=== PATIENT | female | born 1970 | race Caucasian/White ===

== ENCOUNTER 2017-07-07 11:20 | Inpatient (IN) | payer MEDICAID ==
[2017-07-07 11:32] VITALS: BMI 21.7
[2017-07-07 11:54] VITALS: O2SAT 98
[2017-07-07] MEDS ORDERED: Oxycodone/Acetaminophen 5/325 mg Tab PO STA (12:21)
[2017-07-07 12:28] LABS: PH,URINE >=9.0 (4.7-8.0); URINE BILIRUBIN NEGATIVE (NEGATIVE); URINE BLOOD MODERATE (NEGATIVE); URINE GLUCOSE (UA) NEGATIVE (NEGATIVE); URINE KETONE TRACE mg/dL (NEGATIVE); URINE LEUKOCYTE ESTERASE NEGATIVE Leu/uL (NEGATIVE); URINE PROTEIN 100 mg/dL (<30 mg/dL)
[2017-07-07 12:29] LABS: URINE APPEARANCE SL CLOUDY (CLEAR); URINE COLOR YELLOW (YELLOW)
--- NOTE | 2017-07-07 12:29 | ED PDOC ---
Arrival/HPI - General Chief Complaint: Psychiatric Evaluation Time Seen by Provider: 07/07/17 11:26 - History of Present Illness Narrative History of Present Illness (Text): 07/07/17 12:29 A 46 year old female, whose past medical history includes degenerative joint pain to the right hip, is sent to the emergency department from [facility] via [facility] for suicidal ideation. The patient claims she has chronic severe hip pain and the [facility] staff will only administer Tylenol and it doesn't help. The patient states she " I don't want to do this anymore, I want to kill myself, I want to ." Upon arrival patient denies any suicidal ideation and states she has three beautiful children. The patient is continuing to complain about her chronic hip pain. She denies any fever, chest pain, homicidal ideation , hallucinations, or any other complaints at this time. Time/Duration: Prior to Arrival Symptom Onset: Other (chronic ) Symptom Course: Unchanged Activities at Onset: Rest Context: Other ([facility] ) Past Medical History - Provider Review Nursing Documentation Reviewed: Yes - Infectious Disease Hx of Infectious Diseases: None - Hematological/Oncological Hx Hepatitis C: Yes - Musculoskeletal/Rheumatological Hx Osteoporosis: Yes Other/Comment: DJD of R hip - Psychiatric Hx Anxiety: Yes Hx Depression: Yes Hx Substance Use: No - Anesthesia Hx Anesthesia: No Family/Social History - Physician Review Nursing Documentation Reviewed: Yes Family/Social History: Unknown Family HX Smoking Status: Former Smoker Hx Alcohol Use: No Hx Substance Use: No Allergies/Home Meds Allergies/Adverse Reactions: Allergies No Known Allergies Allergy (Verified 07/07/17 11:32) Home Medications: Home Meds Medication Instructions Recorded Confirmed Acetaminophen/Codeine 1 tab PO Q6H PRN 07/07/17 07/07/17 [Tylenol/Codeine 300 MG/30 MG] Cyclobenzaprine [Flexeril] 1 tab PO Q8H PRN 07/07/17 07/07/17 Docusate [Colace] 1 cap PO DAILY 07/07/17 07/07/17 Enoxaparin [Lovenox] 30 mg SC DAILY 07/07/17 07/07/17 Escitalopram [Lexapro] 1 tab PO DAILY 07/07/17 07/07/17 Furosemide [Lasix] 1 tab PO DAILY 07/07/17 07/07/17 Gabapentin [Neurontin] 1 cap PO BID 07/07/17 07/07/17 Hydroxyzine HCl [Hydroxyzine HCl] 1 tab PO Q4H PRN 07/07/17 07/07/17 Ketorolac Tromethamine [Toradol] 15 mg PO Q6H PRN 07/07/17 07/07/17 Ondansetron ODT [Zofran ODT] 1 tab PO Q6H PRN 07/07/17 07/07/17 Pantoprazole Sodium [Protonix] 1 tab PO DAILY 07/07/17 07/07/17 Potassium Chloride [K-Dur 20 mEq 1 tab PO DAILY 07/07/17 07/07/17 ER Tab] Saccharomyces Boulardi [Florastor] 1 cap PO BID 07/07/17 07/07/17 Temazepam [Restoril] 1 cap PO HS PRN 07/07/17 07/07/17 cloNIDine [Catapres] 1 tab PO Q6H 07/07/17 07/07/17 traZODone [Desyrel] 1 tab PO HS 07/07/17 07/07/17 Review of Systems - Physician Review All systems were reviewed & negative as marked: Yes - Review of Systems Constitutional: absent: Fevers Cardiovascular: absent: Chest Pain Psychiatric: absent: Suicidal Ideation, Other (hallucination) Physical Exam - Physical Exam Narrative Physical Exam (Text): 07/07/17 12:30 Constitutional: No acute distress. Head: Normocephalic. Atraumatic. Eyes: PERRL. ENT: Moist mucous membranes. Neck: Supple. Cardiovascular: Regular rate. Chest: No tenderness. Respiratory: Clear to auscultation bilaterally. GI: Soft. Nontender. Nondistended. Back: No CVA tenderness. Musculoskeletal: No tenderness or swelling of extremities. Right hip tenderness. Skin: No rash. Neurologic: Alert, no focal deficit. Vital Signs Reviewed: Yes Vital Signs Pulse Resp BP Pulse Ox 07/07/17 17:45 104 H 193/105 H 07/07/17 13:20 98 H 19 159/92 H 98 07/07/17 11:47 104 H 17 143/90 98 Blood Pressure: Normal Pulse: Tachycardic Respiratory Rate: Normal Appearance: Positive for: Well-Appearing, Non-Toxic, Comfortable Pain Distress: None Mental Status: Positive for: Alert and Oriented X 3 Medical Decision Making ED Course and Treatment: 07/07/17 12:32 Impression: 46 year old female brought in via EMS for suicidal ideation. Differential Diagnosis included but are not limited to: Plan: -- EKG -- Chest X-ray -- Labs -- Zofran, Percocet -- Urinalysis -- Reassess and disposition Progress Notes: 07/07/17 14:13 Medically cleared. PES called. 07/07/17 15:07 Patient began vomiting. Abdomen nontender. Vomitus bilious. Will send for CT. CT negative for any acute disease. Patient was evaluated by PES, accepted by Dr. Mojica for major depression. - Lab Interpretations Lab Results: 07/07/17 13:25 07/07/17 13:25 Lab Results 07/07/17 13:25: Lipase 92 07/07/17 13:25: Alcohol, Quantitative < 10 07/07/17 13:25: Salicylates < 1 L, Acetaminophen < 10.0 L 07/07/17 13:25: Sodium 138, Potassium 4.3, Chloride 99, Carbon Dioxide 24, Anion Gap 19, BUN 19, Creatinine 0.7, Est GFR ( Amer) > 60, Est GFR (Non- Af Amer) > 60, Random Glucose 110, Calcium 10.1, Total Bilirubin 0.7, AST 25, ALT 19, Alkaline Phosphatase 136 H, Total Protein 8.8 H, Albumin 3.8, Globulin 5.0, Albumin/Globulin Ratio 0.8 L 07/07/17 13:25: WBC 12.5 H, RBC 4.43, Hgb 11.2 L, Hct 33.8 L, MCV 76.3 L, MCH 25.3, MCHC 33.1, RDW 15.3 H, Plt Count 415, MPV 8.3, Gran % 78.9 H, Lymph % ( Auto) 13.3 L, [place] % (Auto) 7.6 H, Eos % (Auto) 0.0 L, Baso % (Auto) 0.2, Gran # 9.90 H, Lymph # 1.7, [place] # 1.0 H, Eos # 0.0, Baso # 0.02 07/07/17 12:05: Urine HCG, Qual Negative 07/07/17 12:05: Urine Opiates Screen Positive H, Urine Methadone Screen Negative , Ur Barbiturates Screen Negative, Ur Phencyclidine Scrn Negative, Ur Amphetamines Screen Negative, U Benzodiazepines Scrn Positive H, U Oth Cocaine Metabols Negative, U Cannabinoids Screen Negative 07/07/17 12:05: Urine Color Yellow, Urine Appearance Sl cloudy, Urine pH >=9.0, Ur Specific Ransom 1.015, Urine Protein 100 H, Urine Glucose (UA) Negative, Urine Ketones Trace H, Urine Blood Moderate H, Urine Nitrate Negative, Urine Bilirubin Negative, Urine Urobilinogen 2.0 H, Ur Leukocyte Esterase Negative, Urine RBC 10 - 15, Urine WBC 0 - 2, Ur Epithelial Cells 0 - 2, Urine Bacteria Many - RAD Interpretation Radiology Orders: 07/07/17 12:13 CHEST PORTABLE [RAD] Stat 07/07/17 15:04 ABD & PELVIS W/O PO OR IV CONT [CT] Stat - Medication Orders Current Medication Orders: Discontinued Medications Alprazolam (Xanax) 0.5 mg PO STAT STA PRN Reason: Protocol Stop: 07/07/17 13:33 Last Admin: 07/07/17 13:38 Dose: 0.5 mg Clonidine HCl (Catapres) 0.1 mg PO STAT STA Stop: 07/07/17 17:32 Last Admin: 07/07/17 17:45 Dose: 0.1 mg Ondansetron HCl (Zofran Odt) 4 mg PO STAT STA Stop: 07/07/17 12:24 Last Admin: 07/07/17 12:38 Dose: 4 mg Ondansetron HCl (Zofran Odt) 4 mg PO STAT STA Stop: 07/07/17 17:08 Last Admin: 07/07/17 17:20 Dose: 4 mg Oxycodone/Acetaminophen (Percocet 5/325 Mg Tab) 1 tab PO STAT STA Stop: 07/07/17 12:22 Last Admin: 07/07/17 12:38 Dose: 1 tab - Scribe Statement The provider has reviewed the documentation as recorded by the Jesus Macedo Provider Scribe Attestation: All medical record entries made by the Scribe were at my direction and personally dictated by me. I have reviewed the chart and agree that the record accurately reflects my personal performance of the history, physical exam, medical decision making, and the department course for this patient. I have also personally directed, reviewed, and agree with the discharge instructions and disposition. Disposition/Present on Arrival - Present on Arrival Any Indicators Present on Arrival: No History of DVT/PE: No History of Uncontrolled Diabetes: No Urinary Catheter: No History of Decub. Ulcer: No History Surgical Site Infection Following: None - Disposition Have Diagnosis and Disposition been Completed?: Yes Diagnosis: Major depression Disposition: HOSPITALIZED Disposition Time: 14:13 Patient Plan: Admission Condition: FAIR
[2017-07-07 12:50] LABS: URINE EPITHELIAL CELLS 0 - 2 /hpf (0-5); URINE WBC 0 - 2 /hpf (0-6)
[2017-07-07 12:51] LABS: URINE BACTERIA MANY (NEG)
--- NOTE | 2017-07-07 13:14 | RAD ---
HISTORY: SI COMPARISON: No prior. FINDINGS: LUNGS: No active pulmonary disease. PLEURA: No significant pleural effusion identified, no pneumothorax apparent. CARDIOVASCULAR: Normal. OSSEOUS STRUCTURES: No significant abnormalities. VISUALIZED UPPER ABDOMEN: Normal. OTHER FINDINGS: None. IMPRESSION: No active disease.
[2017-07-07 13:38] LABS: BASO # 0.02 K/mm3 (0.0-2.0); BASO % 0.2 % (0.0-3.0); GRAN # 9.9 (1.4-6.5); GRAN % 78.9 % (50.0-68.0); HEMATOCRIT 33.8 % (36.0-48.0); LYMPH # 1.7 (1.2-3.4); LYMPH % 13.3 % (22.0-35.0); MEAN CELL VOLUME 76.3 fl (80.0-105.0); MEAN CORPUSCULAR HEMOGLOBIN 25.3 pg (25.0-35.0); MEAN CORPUSCULAR HGB CONC 33.1 g/dl (31.0-37.0); MEAN PLATELET VOLUME 8.3 fl (7.0-11.0); MONO % 7.6 % (1.0-6.0); RED CELL DISTRIBUTION WIDTH 15.3 % (11.5-14.5); WHITE BLOOD COUNT 12.5 10^3/ul (4.5-11.0)
[2017-07-07 13:50] LABS: ALB/GLOB RATIO 0.8 (1.1-1.8); ALKALINE PHOSPHATASE 136 U/L (38-126); ALT/SGPT 19 U/L (7-56); AST/SGOT 25 U/L (14-36); BILIRUBIN,TOTAL 0.7 mg/dL (0.2-1.3); BLOOD UREA NITROGEN 19 mg/dL (7-21); CALCIUM 10.1 mg/dL (8.4-10.5); CARBON DIOXIDE 24 mmol/L (21-33); CHLORIDE 99 mmol/L (98-107); GFR AFRICAN-AMERICAN > 60; GLUCOSE,RANDOM 110 mg/dL (70-110); POTASSIUM 4.3 mmol/L (3.6-5.0); SODIUM 138 mmol/L (132-148); TOTAL PROTEIN 8.8 g/dL (5.8-8.3)
--- NOTE | 2017-07-07 16:56 | CT ---
PROCEDURE: CT Abdomen and Pelvis without intravenous contrast HISTORY: vomiting COMPARISON: None. TECHNIQUE: Without contrast.. Contrast Dose: Radiation dose: Total exam DLP = 471 mGy-cm. This CT exam was performed using one or more of the following dose reduction techniques: Automated exposure control, adjustment of the mA and/or kV according to patient size, and/or use of iterative reconstruction technique. FINDINGS: LOWER THORAX: Unremarkable. LIVER: Unremarkable. No gross lesion or ductal dilatation. GALLBLADDER AND BILE DUCTS: There is calcification of the wall of the gallbladder PANCREAS: Unremarkable. No gross lesion or ductal dilatation. SPLEEN: Unremarkable. ADRENALS: Unremarkable. No mass. KIDNEYS AND URETERS: There is a 6 mm stone in the superior pole of the right kidney. VASCULATURE: Unremarkable. No aortic aneurysm. BOWEL: Unremarkable. No obstruction. No gross mural thickening. APPENDIX: Unremarkable. Normal appendix. PERITONEUM: Unremarkable. No free fluid. No free air. LYMPH NODES: Unremarkable. No enlarged lymph nodes. BLADDER: Unremarkable. REPRODUCTIVE: Unremarkable. BONES: Severe degenerative changes in the right hip with multiple bony fragments and destruction of the articular surface. OTHER FINDINGS: None. IMPRESSION: No acute intra-abdominal findings
[2017-07-07 17:38] VITALS: RESP 19
[2017-07-07] MEDS ORDERED: Alum-Mag Hydrox-Simethicone Susp (30 mL) PO PRN (21:34)
[2017-07-07] MEDS ORDERED: Magnesium Hydroxide Susp 30 ml UD PO PRN (21:34)
--- NOTE | 2017-07-08 01:33 | PCM.BM ---
Treatment Plan Problems - Problems identified on initial assessmt depression Date Initiated: 07/07/17 Time Initiated: 20:00 Assessment reference: NA Status: Active Priority: 1 anxiety Date Initiated: 07/07/17 Time Initiated: 20:00 Assessment reference: NA Status: Active Priority: 2 Treatment assets and liabiliti Patient Assests: negotiates basic needs, cognitively intact Patient Liabilities: physical pain, financial problems, poor support system, substance abuse, medical problems - Milieu Protocol Maintain good personal hygiene: daily Assist patient to perform ADL's Conduct patient checks and document Observation sheet: Q15 minutes Maintain personal safety: daily Monitor environment for contraband/sharps, every shift Educate patient to report safety concerns to staff Medication safety: Monitor for expected outcome, potential side effects: every shift, Assess barriers to learning: every shift, Assess readiness for medication education: every shift Discharge/Continuing Care - Education Needs Education Needs: Patient Medication, Patient Coping Skills, Patient Activities of Daily Living, Patient Pain - Discharge Discharge Criteria: Free of agitation, Normal sleep pattern
[2017-07-08 01:50] VITALS: BP 175/104; PULSE 88
--- NOTE | 2017-07-08 02:01 | CP.PCM.PN ---
Subjective - Date & Time of Evaluation Date of Evaluation: 07/08/17 Time of Evaluation: 01:57 - Subjective Subjective: Patient was seen for elevated blood pressure reading. Requested xanax. 181/111-->174/99 hr-104/min. Clonidine 0.1 mg was given po x2. 182/109---> hydralazine 50 mg pox1. BP 181/109 mmHG. Patient has been vomiting.Last time vomiting showed blood. This 46 year old white woman was admitted with suicidal ideation . Has PMH of DJD of right hip, osteoporosis, hepatitis, heroine abuse, smoker. Objective - Vital Signs/Intake and Output Vital Signs (last 24 hours): Temp Pulse Resp BP Pulse Ox 88 19 175/104 H 98 07/08/17 01:46 07/07/17 13:20 07/08/17 01:46 07/07/17 13:20 - Medications Medications: Current Medications Al Hydrox/Mg Hydrox/Simethicone (Maalox Plus 30 Ml) 30 ml PO DAILY PRN PRN Reason: Upset Stomach Clonidine HCl (Catapres) 0.1 mg PO DAILY NARENDRA Cyclobenzaprine HCl (Flexeril) 10 mg PO Q8 PRN PRN Reason: Muscle spasm Docusate Sodium (Colace) 100 mg PO DAILY NARENDRA Enoxaparin Sodium (Lovenox) 30 mg SC DAILY NARENDRA PRN Reason: Protocol Escitalopram Oxalate (Lexapro) 10 mg PO DAILY NARENDRA Furosemide (Lasix) 20 mg PO DAILY NARENDRA Gabapentin (Neurontin) 300 mg PO TID NARENDRA PRN Reason: Protocol Ibuprofen (Motrin Tab) 600 mg PO QID PRN PRN Reason: Pain, moderate (4-7) Last Admin: 07/07/17 21:11 Dose: 600 mg Ketorolac Tromethamine (Toradol) 15 mg IM Q6 PRN PRN Reason: Pain, severe (8-10) Stop: 07/12/17 20:49 Lorazepam (Ativan) 0.5 mg PO BID PRN; Protocol PRN Reason: Anxiety Last Admin: 07/07/17 21:12 Dose: 0.5 mg Magnesium Hydroxide (Milk Of Magnesia) 30 ml PO DAILY PRN PRN Reason: Constipation Ondansetron HCl (Zofran Odt) 4 mg PO Q6 PRN PRN Reason: Nausea/Vomiting Last Admin: 07/07/17 23:59 Dose: 4 mg Pantoprazole Sodium (Protonix Ec Tab) 40 mg PO 0600 NARENDRA Potassium Chloride (K-Dur 20 Meq Er Tab) 20 meq PO 0800 NARENDRA Zaleplon (Sonata) 5 mg PO HS PRN PRN Reason: Insomnia Last Admin: 07/07/17 21:11 Dose: 5 mg - Constitutional Appears: Other (In mild distress.) - Head Exam Head Exam: ATRAUMATIC, NORMAL INSPECTION, NORMOCEPHALIC - Eye Exam Eye Exam: Normal appearance - ENT Exam ENT Exam: Mucous Membranes Dry, Normal External Ear Exam - Neck Exam Neck Exam: Normal Inspection - Respiratory Exam Respiratory Exam: NORMAL BREATHING PATTERN - Cardiovascular Exam Cardiovascular Exam: +S1 (Normal.), +S2 (Normal.). absent: JVD - GI/Abdominal Exam GI & Abdominal Exam: absent: Distended - Rectal Exam Rectal Exam: Deferred - Exam Additional comments: Deferred. - Back Exam Back Exam: NORMAL INSPECTION - Neurological Exam Neurological Exam: Alert, Oriented x3 - Psychiatric Exam Psychiatric exam: Normal Affect, Normal Mood - Skin Skin Exam: Dry Assessment and Plan - Assessment and Plan (Free Text) Assessment: Uncontrolled hypertension. Hemetemesis. Suicidal ideation. Heroine withdrawal. Hx hepatitis C. Hx osteoporosis. Hx right hip DJD. Plan: Clonidine 0.1 mg PO x 2. Hydralazine 50 mg PO x 1. Will transfer to ER for evaluation for admission to acute care side.
[2017-07-08] MEDS ORDERED: Pantoprazole 40 mg EC Tab PO ONE (02:53)
[2017-07-08] MEDS ORDERED: Pantoprazole 40 mg EC Tab PO SCH (06:00)
--- NOTE | 2017-07-08 07:56 | PCM.PSYCH ---
Initial Psychiatric Evaluation - Initial Psychiatric Evaluation Type of Admission: Voluntary Legal Status: Capacity (pt has capacity to sign consent for tx) Chief Complaint (in patient's own words): "I am in pain" Patient's Reaction to Hospitalization: pt was admitted to the psych unit from the [facility] for evaluation of depressive symptoms and possible SI ideation History of Present Illness and Precipitating Events: shortly pt is 46yo female, not known h/o mental illness, was referred from the [facility] for eval of depressive symptoms and possible suicidal ideation, pt was admitted over night. this literary writer was not able to assess pt because pt was transferred to ED for evaluation of blood vomiting, uncontrolled elevation BP. vitals reviewed, discussed with RNs. Hospitalist note reviewed. medical h/o: DJD of right hip, osteoporosis, hepatitis, heroine abuse, smoker 07/07/17 13:25 07/07/17 13:25 Lab Results 07/07/17 13:25: Lipase 92 07/07/17 13:25: Alcohol, Quantitative < 10 07/07/17 13:25: Salicylates < 1 L, Acetaminophen < 10.0 L 07/07/17 13:25: Sodium 138, Potassium 4.3, Chloride 99, Carbon Dioxide 24, Anion Gap 19, BUN 19, Creatinine 0.7, Est GFR ( Amer) > 60, Est GFR (Non- Af Amer) > 60, Random Glucose 110, Calcium 10.1, Total Bilirubin 0.7, AST 25, ALT 19, Alkaline Phosphatase 136 H, Total Protein 8.8 H, Albumin 3.8, Globulin 5.0, Albumin/Globulin Ratio 0.8 L 07/07/17 13:25: WBC 12.5 H, RBC 4.43, Hgb 11.2 L, Hct 33.8 L, MCV 76.3 L, MCH 25.3, MCHC 33.1, RDW 15.3 H, Plt Count 415, MPV 8.3, Gran % 78.9 H, Lymph % ( Auto) 13.3 L, [place] % (Auto) 7.6 H, Eos % (Auto) 0.0 L, Baso % (Auto) 0.2, Gran # 9.90 H, Lymph # 1.7, [place] # 1.0 H, Eos # 0.0, Baso # 0.02 07/07/17 12:05: Urine HCG, Qual Negative 07/07/17 12:05: Urine Opiates Screen Positive H, Urine Methadone Screen Negative , Ur Barbiturates Screen Negative, Ur Phencyclidine Scrn Negative, Ur Amphetamines Screen Negative, U Benzodiazepines Scrn Positive H, U Oth Cocaine Metabols Negative, U Cannabinoids Screen Negative 07/07/17 12:05: Urine Color Yellow, Urine Appearance Sl cloudy, Urine pH >=9.0, Ur Specific [place] 1.015, Urine Protein 100 H, Urine Glucose (UA) Negative, Urine Ketones Trace H, Urine Blood Moderate H, Urine Nitrate Negative, Urine Bilirubin Negative, Urine Urobilinogen 2.0 H, Ur Leukocyte Esterase Negative, Urine RBC 10 - 15, Urine WBC 0 - 2, Ur Epithelial Cells 0 - 2, Urine Bacteria Many Vital Signs Pulse Resp BP Pulse Ox 07/08/17 01:46 88 175/104 H 07/07/17 23:18 89 174/99 H 07/07/17 17:45 104 H 193/105 H 07/07/17 13:20 98 H 19 159/92 H 98 07/07/17 11:47 104 H 17 143/90 98 Current Medications: Active Medications Generic Name Dose Route Start Last Admin Trade Name Freq PRN Reason Stop Dose Admin Al Hydrox/Mg Hydrox/Simethicone 30 ml 07/07/17 21:34 Maalox Plus 30 Ml PO DAILY PRN Upset Stomach Clonidine HCl 0.1 mg 07/08/17 08:00 Catapres PO DAILY [facility] Cyclobenzaprine HCl 10 mg 07/07/17 21:24 Flexeril PO Q8 PRN Muscle spasm Docusate Sodium 100 mg 07/08/17 08:00 Colace PO DAILY [facility] Enoxaparin Sodium 30 mg 07/08/17 08:00 Lovenox SC DAILY [facility] Protocol Escitalopram Oxalate 10 mg 07/08/17 08:00 Lexapro PO DAILY [facility] Furosemide 20 mg 07/08/17 08:00 Lasix PO DAILY [facility] Gabapentin 300 mg 07/08/17 08:00 Neurontin PO TID [facility] Protocol Ibuprofen 600 mg 07/07/17 20:50 07/07/17 21:11 Motrin Tab PO 600 mg QID PRN Administration Pain, moderate (4-7) Ketorolac Tromethamine 15 mg 07/07/17 20:48 Toradol IM 07/12/17 20:49 Q6 PRN Pain, severe (8-10) Lorazepam 0.5 mg 07/07/17 20:48 07/07/17 21:12 Ativan PO 0.5 mg BID PRN Administration Anxiety Protocol Magnesium Hydroxide 30 ml 07/07/17 21:34 Milk Of Magnesia PO DAILY PRN Constipation Ondansetron HCl 4 mg 07/07/17 21:24 07/07/17 23:59 Zofran Odt PO 4 mg Q6 PRN Administration Nausea/Vomiting Pantoprazole Sodium 40 mg 07/08/17 06:00 Protonix Ec Tab PO 0600 NARENDRA Potassium Chloride 20 meq 07/08/17 08:00 K-Dur 20 Meq Er Tab PO 0800 NARENDRA Zaleplon 5 mg 07/07/17 20:48 07/07/17 21:11 Sonata PO 5 mg HS PRN Administration Insomnia Past Psychiatric History - Past Psychiatric History Previous Treatment History: None Prior Professional Help: see HPI Prior Psychiatric Treatment: see HPI At what hospital: see HPI Duration: see HPI Nature of Treatment: see HPI Explanation of prior treatment: see HPI History of Abuse: see HPI unknown History of ETOH/Drug Use: see HPI unknown History of Family Illness: see HPI unknown Pertinent Medical Hx (Current Medical&Sleep Prob, Allergies): Allergies Allergy/AdvReac Type Severity Reaction Status Date / Time No Known Allergies Allergy Verified 07/07/17 22:33 Acetaminophen/Codeine [Tylenol/Codeine 300 MG/30 MG] 1 tab PO Q6H PRN 07/07/17 Cyclobenzaprine [Flexeril] 1 tab PO Q8H PRN 07/07/17 Docusate [Colace] 1 cap PO DAILY 07/07/17 Enoxaparin [Lovenox] 30 mg SC DAILY 07/07/17 Escitalopram [Lexapro] 1 tab PO DAILY 07/07/17 Furosemide [Lasix] 1 tab PO DAILY 07/07/17 Gabapentin [Neurontin] 1 cap PO BID 07/07/17 Hydroxyzine HCl [Hydroxyzine HCl] 1 tab PO Q4H PRN 07/07/17 Ketorolac Tromethamine [Toradol] 15 mg PO Q6H PRN 07/07/17 Ondansetron ODT [Zofran ODT] 1 tab PO Q6H PRN 07/07/17 Pantoprazole Sodium [Protonix] 1 tab PO DAILY 07/07/17 Potassium Chloride [K-Dur 20 mEq ER Tab] 1 tab PO DAILY 07/07/17 Saccharomyces Boulardi [Florastor] 1 cap PO BID 07/07/17 Temazepam [Restoril] 1 cap PO HS PRN 07/07/17 cloNIDine [Catapres] 1 tab PO Q6H 07/07/17 traZODone [Desyrel] 1 tab PO HS 07/07/17 Review of Systems - Review of Systems Systems not reviewed;Unavailable: Acuity of Condition - EENT Eyes: As Per HPI Ears: As Per HPI Nose/Mouth/Throat: As Per HPI - Breasts Breasts: As Per HPI - Cardiovascular Cardiovascular: As Per HPI - Respiratory Respiratory: As Per HPI - Gastrointestinal Gastrointestinal: As Per HPI - Genitourinary Genitourinary: As Per HPI - Reproductive: Female Reproductive:Female: As Per HPI - Menstruation Menstruation: As Per HPI - Musculoskeletal Musculoskeletal: As Par HPI - Integumentary Integumentary: As Per HPI - Neurological Neurological: As Per HPI - Psychiatric Psychiatric: As Per HPI - Endocrine Endocrine: As Per HPI - Hematologic/Lymphatic Hematologic: As Per HPI DSM 5 DX - DSM 5 DSM 5 Diagnosis: r/o MDD r/o mood disorder due to [place] [facility] [place] Recommended/Plan of Treatment Treatment Recommendations and Plan of Treatment: pt was transferred to ED this literary writer will f/u on pt as a outreach consultant Prognosis: guarded
--- NOTE | 2017-07-08 07:57 | PCM.PYCHDC ---
Mental Status Examination - Mental Status Examination Orientation: Person Memory: Intact Mood: Depressed Formal Thought Process: No Impairment Suicidal Ideation: No Current Homicidal Ideation?: No Discharge Summary - Discharge Note Reason for Hospitalization: pt was admitted to the psych unit from the [facility] for evaluation of depressive symptoms and possible SI ideation Psychiatric History (includes Medical, Family, Personal Hx): see HPI Laboratory Data: 07/07/17 13:25 07/07/17 13:25 Lab Results 07/07/17 13:25: Lipase 92 07/07/17 13:25: Alcohol, Quantitative < 10 07/07/17 13:25: Salicylates < 1 L, Acetaminophen < 10.0 L 07/07/17 13:25: Sodium 138, Potassium 4.3, Chloride 99, Carbon Dioxide 24, Anion Gap 19, BUN 19, Creatinine 0.7, Est GFR ( Amer) > 60, Est GFR (Non- Af Amer) > 60, Random Glucose 110, Calcium 10.1, Total Bilirubin 0.7, AST 25, ALT 19, Alkaline Phosphatase 136 H, Total Protein 8.8 H, Albumin 3.8, Globulin 5.0, Albumin/Globulin Ratio 0.8 L 07/07/17 13:25: WBC 12.5 H, RBC 4.43, Hgb 11.2 L, Hct 33.8 L, MCV 76.3 L, MCH 25.3, MCHC 33.1, RDW 15.3 H, Plt Count 415, MPV 8.3, Gran % 78.9 H, Lymph % ( Auto) 13.3 L, [place] % (Auto) 7.6 H, Eos % (Auto) 0.0 L, Baso % (Auto) 0.2, Gran # 9.90 H, Lymph # 1.7, [place] # 1.0 H, Eos # 0.0, Baso # 0.02 07/07/17 12:05: Urine HCG, Qual Negative 07/07/17 12:05: Urine Opiates Screen Positive H, Urine Methadone Screen Negative , Ur Barbiturates Screen Negative, Ur Phencyclidine Scrn Negative, Ur Amphetamines Screen Negative, U Benzodiazepines Scrn Positive H, U Oth Cocaine Metabols Negative, U Cannabinoids Screen Negative 07/07/17 12:05: Urine Color Yellow, Urine Appearance Sl cloudy, Urine pH >=9.0, Ur Specific [place] 1.015, Urine Protein 100 H, Urine Glucose (UA) Negative, Urine Ketones Trace H, Urine Blood Moderate H, Urine Nitrate Negative, Urine Bilirubin Negative, Urine Urobilinogen 2.0 H, Ur Leukocyte Esterase Negative, Urine RBC 10 - 15, Urine WBC 0 - 2, Ur Epithelial Cells 0 - 2, Urine Bacteria Many Vital Signs Pulse Resp BP Pulse Ox 07/08/17 01:46 88 175/104 H 07/07/17 23:18 89 174/99 H 07/07/17 17:45 104 H 193/105 H 07/07/17 13:20 98 H 19 159/92 H 98 07/07/17 11:47 104 H 17 143/90 98 Consultations:: List each consultation separately and include: 1. Reason for request. 2. Findings. 3. Follow-up Consultations: hospitalist saw pt pt was transferred to ED for further evaluation/stabilization Summary of Hospital Course include:: 1. Description of specific treatment plan utilized for patients during their course of treatmen. 2. Summarize the time- course for resolution of acute symptoms and/or regressed behaviors. 3. Describe issues identified and worked on during hospitalization. 4. Describe medication utilized. 5. Describe medical problems identified and treated. 6. Reassessment of suicide risk Summary of Hospital Course: shortly pt is 46yo female, not known h/o mental illness, was referred from the [facility] for eval of depressive symptoms and possible suicidal ideation, pt was admitted over night. this commercial lines underwriter was not able to assess pt because pt was transferred to ED for evaluation of blood vomiting, uncontrolled elevation BP. vitals reviewed, discussed with RNs. Hospitalist note reviewed. medical h/o: DJD of right hip, osteoporosis, hepatitis, heroine abuse, smoker 07/07/17 13:25 07/07/17 13:25 Lab Results 07/07/17 13:25: Lipase 92 07/07/17 13:25: Alcohol, Quantitative < 10 07/07/17 13:25: Salicylates < 1 L, Acetaminophen < 10.0 L 07/07/17 13:25: Sodium 138, Potassium 4.3, Chloride 99, Carbon Dioxide 24, Anion Gap 19, BUN 19, Creatinine 0.7, Est GFR ( Amer) > 60, Est GFR (Non- Af Amer) > 60, Random Glucose 110, Calcium 10.1, Total Bilirubin 0.7, AST 25, ALT 19, Alkaline Phosphatase 136 H, Total Protein 8.8 H, Albumin 3.8, Globulin 5.0, Albumin/Globulin Ratio 0.8 L 07/07/17 13:25: WBC 12.5 H, RBC 4.43, Hgb 11.2 L, Hct 33.8 L, MCV 76.3 L, MCH 25.3, MCHC 33.1, RDW 15.3 H, Plt Count 415, MPV 8.3, Gran % 78.9 H, Lymph % ( Auto) 13.3 L, [place] % (Auto) 7.6 H, Eos % (Auto) 0.0 L, Baso % (Auto) 0.2, Gran # 9.90 H, Lymph # 1.7, [place] # 1.0 H, Eos # 0.0, Baso # 0.02 07/07/17 12:05: Urine HCG, Qual Negative 07/07/17 12:05: Urine Opiates Screen Positive H, Urine Methadone Screen Negative , Ur Barbiturates Screen Negative, Ur Phencyclidine Scrn Negative, Ur Amphetamines Screen Negative, U Benzodiazepines Scrn Positive H, U Oth Cocaine Metabols Negative, U Cannabinoids Screen Negative 07/07/17 12:05: Urine Color Yellow, Urine Appearance Sl cloudy, Urine pH >=9.0, Ur Specific [place] 1.015, Urine Protein 100 H, Urine Glucose (UA) Negative, Urine Ketones Trace H, Urine Blood Moderate H, Urine Nitrate Negative, Urine Bilirubin Negative, Urine Urobilinogen 2.0 H, Ur Leukocyte Esterase Negative, Urine RBC 10 - 15, Urine WBC 0 - 2, Ur Epithelial Cells 0 - 2, Urine Bacteria Many Vital Signs Pulse Resp BP Pulse Ox 07/08/17 01:46 88 175/104 H 07/07/17 23:18 89 174/99 H 07/07/17 17:45 104 H 193/105 H 07/07/17 13:20 98 H 19 159/92 H 98 07/07/17 11:47 104 H 17 143/90 98 - Final Diagnosis (DSM 5) Condition upon Discharge: FAIR Disposition: HOME/ ROUTINE Follow-up Treatment Plan: pt was transferred to ED this commercial lines underwriter will f/u on pt as a wound care center consultant
[2017-07-08] MEDS ORDERED: Enoxaparin 30 mg Syringe SC SCH (08:00)
[2017-07-08] MEDS ORDERED: Potassium Chloride 20 mEq ER Tab PO SCH (08:00)
--- NOTE | 2017-07-08 08:57 | CARD ---
APPROVED REPORT EKG Measurement Heart [id number] <Conclusion> Sinus tachycardia Otherwise normal ECG
== END 2017-07-08 05:58 | disposition short-term general hospital (02) | DRG 426 ==
LOC: ED 11:20 → ERH 17:06 → PSYC 19:51
PROVIDERS: ADMIT Psychiatry & Neurology Psychiatry; ATTEND Psychiatry & Neurology Psychiatry
DX: F32.9 Major depressive disorder, single episode, unspecified (principal); R45.851 Suicidal ideations; K92.0 Hematemesis; B19.20 Unspecified viral hepatitis C without hepatic coma; F11.10 Opioid abuse, uncomplicated; I10 Essential (primary) hypertension; M81.0 Age-related osteoporosis without current pathological fracture; M16.11 Unilateral primary osteoarthritis, right hip; G89.29 Other chronic pain; F41.9 Anxiety disorder, unspecified; Z87.891 Personal history of nicotine dependence

== ENCOUNTER 2017-07-08 04:56 | Inpatient (IN) | payer MEDICAID ==
[2017-07-08 04:56] VITALS: BMI 21.7
[2017-07-08] MEDS ORDERED: Famotidine 20mg/50ml 20 MG/50 ML BAG IV STA (05:03)
--- NOTE | 2017-07-08 05:04 | ED PDOC ---
Arrival/HPI - General Chief Complaint: High Blood Pressure Time Seen by Provider: 07/08/17 05:00 Historian: Patient - History of Present Illness Narrative History of Present Illness (Text): 07/08/17 05:00 A 46 year old female with no significant past medical history, presents to the Emergency department from [facility] for uncontrolled hypertension and multiple episodes of nausea and vomiting. The patient was given Hydralazine and Clonidine with no resolution of symptoms. The patient's history was obtained from Dr. Ferrer. She admits to using heroine. the last time of use was 2 days ago. She notes that her current symptoms are different from those of previous opioid withdrawal. She denies fevers, chills, headache, dizziness, abdominal pain, nausea, diarrhea, back pain, neck pain, chest pain, shortness of breath, dyspnea on exertion, cough or any other complaint. Time/Duration: Prior to Arrival Symptom Onset: Sudden Symptom Course: Unchanged Activities at Onset: Rest, Light Context: Other ([facility] [place] [facility] [place] Past Medical History - Provider Review Nursing Documentation Reviewed: Yes - Infectious Disease Hx of Infectious Diseases: None - Cardiac Hx Cardiac Disorders: No Hx Hypertension: No - Pulmonary Hx Tuberculosis: No - Neurological HX Cerebrovascular Accident: No Hx Seizures: No - Hematological/Oncological Hx Hepatitis C: Yes - Musculoskeletal/Rheumatological Hx Osteoporosis: Yes Other/Comment: DJD of R hip - Genitourinary/Gynecological Hx Sexually Transmitted Diseases: No - Psychiatric Hx Anxiety: Yes Hx Depression: Yes Hx Substance Use: Yes - Anesthesia Hx Anesthesia: No Family/Social History - Physician Review Nursing Documentation Reviewed: Yes Family/Social History: No Known Family HX Smoking Status: Former Smoker Hx Alcohol Use: No Hx Substance Use: Yes Allergies/Home Meds Allergies/Adverse Reactions: Allergies No Known Allergies Allergy (Verified 07/07/17 22:33) Home Medications: Home Meds Medication Instructions Recorded Confirmed Acetaminophen/Codeine 1 tab PO Q6H PRN 07/07/17 07/08/17 [Tylenol/Codeine 300 MG/30 MG] Cyclobenzaprine [Flexeril] 1 tab PO Q8H PRN 07/07/17 07/08/17 Docusate [Colace] 1 cap PO DAILY 07/07/17 07/08/17 Enoxaparin [Lovenox] 30 mg SC DAILY 07/07/17 07/08/17 Escitalopram [Lexapro] 1 tab PO DAILY 07/07/17 07/08/17 Furosemide [Lasix] 1 tab PO DAILY 07/07/17 07/08/17 Gabapentin [Neurontin] 1 cap PO BID 07/07/17 07/08/17 Hydroxyzine HCl [Hydroxyzine HCl] 1 tab PO Q4H PRN 07/07/17 07/08/17 Ketorolac Tromethamine [Toradol] 15 mg PO Q6H PRN 07/07/17 07/08/17 Ondansetron ODT [Zofran ODT] 1 tab PO Q6H PRN 07/07/17 07/08/17 Pantoprazole Sodium [Protonix] 1 tab PO DAILY 07/07/17 07/08/17 Potassium Chloride [K-Dur 20 mEq 1 tab PO DAILY 07/07/17 07/08/17 ER Tab] Saccharomyces Boulardi [Florastor] 1 cap PO BID 07/07/17 07/08/17 Temazepam [Restoril] 1 cap PO HS PRN 07/07/17 07/08/17 cloNIDine [Catapres] 1 tab PO Q6H 07/07/17 07/08/17 traZODone [Desyrel] 1 tab PO HS 07/07/17 07/08/17 Review of Systems - Physician Review All systems were reviewed & negative as marked: Yes Physical Exam - Physical Exam Narrative Physical Exam (Text): - Review of Systems Constitutional: (+) uncontrolled hypertension. absent: Fatigue, Weight Change, Fevers Eyes: Normal ENT: denies sore throat, denies tristhmus Respiratory: Normal. absent: SOB, Cough, Sputum Cardiovascular: absent: Chest Pain, Palpitations, Syncope Gastrointestinal: (+) Nausea, Vomiting. absent: Abdominal Pain, Diarrhea Genitourinary: Normal. absent: Dysuria, Frequency, Hematuria Musculoskeletal: Normal. absent: Arthralgias, Back Pain, Neck Pain Skin: no rashes, no erythema Neurological: absent: Focal Weakness Endocrine: Normal Hemo/Lymphatic: Normal Psychiatric: No suicidal or homicidal ideations Physical exam Patient appears age appropriate in no distress, speaking full sentences without difficulty - Systems Exam Head: Present: Atraumatic, Normocephalic Pupils: Present: PERRL Extroacular Muscles: Present: EOMI Conjunctiva: Present: Normal Mouth: Present: Moist Mucous Membranes Neck: Present: Normal Range of Motion. No: MIDLINE TENDERNESS, Paraspinal Tenderness Respiratory/Chest: Present: Clear to Auscultation, Good Air Exchange. No: Respiratory Distress, Accessory Muscle Use, Tachypneic Cardiovascular: Present: Regular Rate and Rhythm, Normal S1, S2, Peripheal Pulses Present. No: Murmurs Abdomen: Present: Normal Bowel Sounds. No: Tenderness, Distention, Peritoneal Signs, Rebound, Guarding Back: Present: Normal Inspection. No: Midline Tenderness, Paraspinal Tenderness Upper Extremity: Present: Normal Inspection. No: Cyanosis, Edema Lower Extremity: Present: Normal Inspection. No: Edema Neurological: Present: GCS=15, Speech Normal, cranial nerves II through XII fully intact with no cerebellar abnormality, neurosensory fully intact. No focal neurological deficits. Skin: Present: Warm, Dry, Normal Color. No: Rashes Lymphatic: Present: OX3, NI, NC Psychiatric: Present: Alert, Oriented x 3, Normal Insight, Normal Concentration Vital Signs Reviewed: Yes Vital Signs Temp Pulse Resp BP Pulse Ox 07/08/17 05:29 94 H 171/102 H 07/08/17 05:00 99.2 F 95 H 16 171/102 H 98 Temperature: Afebrile Blood Pressure: Hypertensive Pulse: Tachycardic Respiratory Rate: Normal Appearance: Positive for: Well-Appearing, Non-Toxic, Comfortable Pain Distress: None Mental Status: Positive for: Alert and Oriented X 3 Medical Decision Making ED Course and Treatment: 07/08/17 05:07 Impression: A 46 year old female presents from the behavioral health floor with uncontrolled hypertension and multiple episodes of Nausea and vomiting. On exam , no acute findings. Plan: -- EKG -- Chest X-Ray -- Labs -- Pepcid and Zofran -- Reassess and disposition Progress Notes: 07/08/17 05:10: Dr. Ferrer asked to admit patient to medical service under the hospitalist. 07/08/17 05:14: Case discussed with Dr. Ferrer, asked to admit patient to hospitalist service Chest X-Ray shows no cardiomegaly, no pneumothorax, no effusion, no infiltrates. Read and interpreted by me. EKG: Ordered, reviewed, and independently interpreted the EKG. Rate : 128 BPM Rhythm : Sinus Tachycardia Interpretation : No ST changes, normal intervals. - Lab Interpretations Lab Results: 07/08/17 05:10 07/08/17 05:10 Lab Results 07/08/17 05:10: Sodium 137, Potassium 4.3, Chloride 97 L, Carbon Dioxide 26, Anion Gap 18, BUN 26 H, Creatinine 0.7, Est GFR ( Amer) > 60, Est GFR ( Non-Af Amer) > 60, Random Glucose 111 H, Calcium 10.4, Total Bilirubin 0.9, AST 30, ALT 23, Alkaline Phosphatase 130 H, Lactate Dehydrogenase 374, Total Creatine Kinase < 20 L, Troponin I Pending, Total Protein 9.3 H, Albumin 4.0, Globulin 5.3, Albumin/Globulin Ratio 0.8 L 07/08/17 05:10: PT 12.0 H, INR 1.11 H, APTT 29.2 07/08/17 05:10: WBC 11.3 H, RBC 4.86, Hgb 12.3, Hct 37.2, MCV 76.5 L, MCH 25.3, MCHC 33.1, RDW 15.6 H, Plt Count 463 H, MPV 8.2, Gran % 72.4 H, Lymph % (Auto) 17.6 L, [place] % (Auto) 9.8 H, Eos % (Auto) 0.0 L, Baso % (Auto) 0.2, Gran # 8.16 H, Lymph # 2.0, [place] # 1.1 H, Eos # 0.0, Baso # 0.02 I have reviewed the lab results: Yes - RAD Interpretation Radiology Orders: 07/08/17 05:01 CHEST PORTABLE [RAD] Stat - EKG Interpretation Interpreted by ED Physician: Yes Type: 12 lead EKG - Medication Orders Current Medication Orders: Hydralazine HCl (Apresoline) 10 mg IVP STAT NARENDRA Last Admin: 07/08/17 05:29 Dose: 10 mg Discontinued Medications Famotidine (Pepcid 20mg/50ml Premix) 20 mg in 50 mls @ 100 mls/hr IV STAT STA Stop: 07/08/17 05:32 Last Admin: 07/08/17 05:23 Dose: 100 mls/hr Ondansetron HCl (Zofran Inj) 4 mg IVP STAT STA Stop: 09/15/17 05:04 Last Admin: 07/08/17 05:23 Dose: 4 mg - Scribe Statement The provider has reviewed the documentation as recorded by the Jesus Hoover Provider Jesus Attestation: All medical record entries made by the Jesus were at my direction and personally dictated by me. I have reviewed the chart and agree that the record accurately reflects my personal performance of the history, physical exam, medical decision making, and the department course for this patient. I have also personally directed, reviewed, and agree with the discharge instructions and disposition Disposition/Present on Arrival - Present on Arrival Any Indicators Present on Arrival: No History of DVT/PE: No History of Uncontrolled Diabetes: No Urinary Catheter: No History of Decub. Ulcer: No History Surgical Site Infection Following: None - Disposition Have Diagnosis and Disposition been Completed?: Yes Diagnosis: Hypertension Disposition: HOSPITALIZED Disposition Time: 05:14 Patient Plan: Admission Patient Problems: Current Active Problems Problem Status Onset Major depression Acute Condition: FAIR
[2017-07-08 05:27] LABS: BASO # 0.02 K/mm3 (0.0-2.0); BASO % 0.2 % (0.0-3.0); GRAN # 8.16 (1.4-6.5); GRAN % 72.4 % (50.0-68.0); HEMATOCRIT 37.2 % (36.0-48.0); LYMPH % 17.6 % (22.0-35.0); MEAN CELL VOLUME 76.5 fl (80.0-105.0); MEAN CORPUSCULAR HEMOGLOBIN 25.3 pg (25.0-35.0); MEAN CORPUSCULAR HGB CONC 33.1 g/dl (31.0-37.0); MEAN PLATELET VOLUME 8.2 fl (7.0-11.0); MONO # 1.1 (0.1-0.6); MONO % 9.8 % (1.0-6.0); RED CELL DISTRIBUTION WIDTH 15.6 % (11.5-14.5); WHITE BLOOD COUNT 11.3 10^3/ul (4.5-11.0)
[2017-07-08 05:33] LABS: INR 1.11 (0.93-1.08); PARTIAL THROMBOPLASTIN TIME 29.2 Seconds (23.7-30.8)
[2017-07-08 05:35] LABS: ALB/GLOB RATIO 0.8 (1.1-1.8); ALKALINE PHOSPHATASE 130 U/L (38-126); ALT/SGPT 23 U/L (7-56); AST/SGOT 30 U/L (14-36); BILIRUBIN,TOTAL 0.9 mg/dL (0.2-1.3); BLOOD UREA NITROGEN 26 mg/dL (7-21); CALCIUM 10.4 mg/dL (8.4-10.5); CARBON DIOXIDE 26 mmol/L (21-33); CHLORIDE 97 mmol/L (98-107); GFR AFRICAN-AMERICAN > 60; GLUCOSE,RANDOM 111 mg/dL (70-110); POTASSIUM 4.3 mmol/L (3.6-5.0); SODIUM 137 mmol/L (132-148); TOTAL PROTEIN 9.3 g/dL (5.8-8.3)
[2017-07-08 06:07] LABS: TROPONIN I < 0.01 ng/mL
--- NOTE | 2017-07-08 07:30 | CP.PCM.HP ---
<Hudson Andrade - Last Filed: 07/08/17 08:06> History of Present Illness - History of Present Illness History of Present Illness: 46 year old female with past medical history of Hepatitis C, Osteoporosis, Depression , heroine use, presents from the behavioral health floor for uncontrolled hypertension. She states that she feels her heart raising. She also states she has been vomiting for the past 3 days. The denies any blood in the vomit and states it has been bile. The patient was given Hydralazine and Clonidine with no improvement of her BP. She admits to using heroine 2 days ago and states she took it for the osteoarthritis pain she has in her right leg. She denies any chest pain, SOB, fevers, chills, headache, dizziness, abdominal pain, N/D, back pain or cough. PMH: Hepatitis C, Osteoporosis, Depression PSH: none Allergies: NKDA Social: lives in a custodial, illicit drug use: admits to using heroine 2 days go Medications: none Family: nothing of significance Present on Admission - Present on Admission Any Indicators Present on Admission: No Review of Systems - Constitutional Constitutional: As Per HPI - EENT Eyes: As Per HPI Ears: As Per HPI Nose/Mouth/Throat: As Per HPI - Cardiovascular Cardiovascular: Rapid Heart Rate. absent: Chest Pain, Chest Pain at Rest, Diaphoresis, Dyspnea - Respiratory Respiratory: absent: Dyspnea, Wheezing, Chest Congestion, Pain with Coughing - Gastrointestinal Gastrointestinal: absent: Abdominal Pain - Genitourinary Genitourinary: absent: Change in Urinary Stream - Musculoskeletal Musculoskeletal: Limited Range of Motion Additional comments: cannot straighten the right leg and hip - Neurological Neurological: absent: Numbness Past Patient History - Infectious Disease Hx of Infectious Diseases: None - Past Social History Smoking Status: Former Smoker - CARDIAC Hx Cardiac Disorders: No Hx Hypertension: No - PULMONARY Hx Tuberculosis: No - NEUROLOGICAL HX Cerebrovascular Accident: No Hx Seizures: No - HEMATOLOGICAL/ONCOLOGICAL Hx Hepatitis C: Yes - MUSCULOSKELETAL/RHEUMATOLOGICAL Hx Osteoporosis: Yes Other/Comment: DJD of R hip - GENITOURINARY/GYNECOLOGICAL Hx Sexually Transmitted Disorders: No - PSYCHIATRIC Hx Anxiety: Yes Hx Depression: Yes Hx Substance Use: Yes - SURGICAL HISTORY Hx Surgeries: No - ANESTHESIA Hx Anesthesia: No Meds Allergies/Adverse Reactions: Allergies Allergy/AdvReac Type Severity Reaction Status Date / Time No Known Allergies Allergy Verified 07/08/17 11:45 Physical Exam - Constitutional Appears: Older Than Stated Age - Head Exam Head Exam: ATRAUMATIC, NORMAL INSPECTION, NORMOCEPHALIC - Eye Exam Eye Exam: EOMI, PERRL - Respiratory Exam Respiratory Exam: Clear to Auscultation Bilateral, NORMAL BREATHING PATTERN - Cardiovascular Exam Cardiovascular Exam: Tachycardia, +S1, +S2 - GI/Abdominal Exam GI & Abdominal Exam: Normal Bowel Sounds - Extremities Exam Additional comments: patient restricted in extensio of right hip - Neurological Exam Neurological exam: Oriented x3 - Psychiatric Exam Psychiatric exam: Anxious Results - Vital Signs Recent Vital Signs: Last Vital Signs Temp 99.2 F 07/08/17 05:00 Pulse 116 H 07/08/17 06:05 Resp 16 07/08/17 06:05 BP 145/97 H 07/08/17 06:05 Pulse Ox 98 07/08/17 06:05 - Labs Result Diagrams: 07/08/17 05:10 07/08/17 05:10 Assessment & Plan - Assessment and Plan (Free Text) Assessment: 46 year old female with past medical history of Hepatitis C, Osteoporosis, Depression , heroine use, presents from the behavioral health floor for uncontrolled hypertension. Patient admits to heroine use 2 days prior. She is being treated for her HTN and increased HR. Plan: 1. HTN and Tachycardia -BP initially was 171/102 -EKG ordered and obtained -Chest x ray ordered and obtained -patient was given hydralazine and clonidine -BP is currently 145/97 HR is 119 2. Hepatitis C -monitor liver function 3. Osteoperosis - Vit D level ordered 4. Depression -continue psyche medications -psychiatry consulted 5. GI prophylaxis -pantoprazole 6. DVT prophylaxis -SCD <Matthew Ferrer - Last Filed: 07/11/17 21:03> Results - Vital Signs Recent Vital Signs: Last Vital Signs Temp 98 F 07/11/17 18:07 Pulse 110 H 07/11/17 18:07 Resp 18 07/11/17 18:07 BP 137/80 07/11/17 18:07 Pulse Ox 96 07/11/17 18:07 - Labs Result Diagrams: 07/11/17 09:10 07/11/17 09:10 Labs: Laboratory Results - last 24 hr 07/11/17 07/11/17 09:10 09:10 WBC 9.4 RBC 3.84 Hgb 9.5 L Hct 29.9 L MCV 77.9 L MCH 24.7 L MCHC 31.8 RDW 15.3 H Plt Count 359 MPV 7.9 Gran % 69.4 H Lymph % (Auto) 20.7 L [place] % (Auto) 8.4 H Eos % (Auto) 1.3 L Baso % (Auto) 0.2 Gran # 6.55 H Lymph # 2.0 [place] # 0.8 H Eos # 0.1 Baso # 0.02 Sodium 135 Potassium 4.2 Chloride 99 Carbon Dioxide 25 Anion Gap 15 BUN 23 H Creatinine 0.6 Est GFR ( Amer) > 60 Est GFR (Non-Af Amer) > 60 Random Glucose 125 H Calcium 9.6 Total Bilirubin 0.5 AST 39 H D ALT 26 Alkaline Phosphatase 88 Total Protein 7.9 Albumin 3.5 Globulin 4.4 Albumin/Globulin Ratio 0.8 L Attending/Attestation - Attestation I have personally seen and examined this patient.: Yes I have fully participated in the care of the patient.: Yes I have reviewed all pertinent clinical information: Yes Notes (Text): 07/11/17 21:02 Agree with history , physical examination, assessment and plan.
--- NOTE | 2017-07-08 09:39 | RAD ---
HISTORY: nv COMPARISON: 07/07/2017 FINDINGS: LUNGS: No active pulmonary disease. PLEURA: No significant pleural effusion identified, no pneumothorax apparent. CARDIOVASCULAR: Normal. OSSEOUS STRUCTURES: No significant abnormalities. VISUALIZED UPPER ABDOMEN: Normal. OTHER FINDINGS: None. IMPRESSION: No active disease.
[2017-07-08] MEDS ORDERED: Pantoprazole 40 mg EC Tab PO SCH (10:00)
[2017-07-08] MEDS: Pantoprazole 40 mg EC Tab PO SCH (10:26)
--- NOTE | 2017-07-08 14:01 | CT ---
PROCEDURE: CT of the right hip without contrast HISTORY: pain COMPARISON: Comparison is made to the previous CT of the abdomen and pelvis dated 07/07/2017 TECHNIQUE: Axial and reformatted coronal and sagittal CT images of the pelvis and right hip were obtained without IV contrast administration. Total exam DLP 282.17 FINDINGS: There is severe destruction of the right femoral head. There is also severe deformity at the right hip and superior subluxation of the right femoral head relative to the acetabulum. There is foci of bony destruction and subcortical erosion seen at the right femoral head. There is also moderate to large right hip joint effusion. Findings could represent septic arthritis versus severe osteoarthritis or other etiology. The visualized portion of the soft tissue in the pelvis is grossly unremarkable without evidence of acute pathology. The bladder is mildly distended. The visualized portion of the left hip is grossly unremarkable. IMPRESSION: Severe destruction at the right femoral head and right hip joint associated with superior subluxation of the right femoral head relative to the acetabulum and moderate to large right hip joint effusion. The differential consideration includes septic arthritis or severe secondary osteoarthritis versus other etiology. If clinically warranted further assessment by MRI or ultrasound guided aspiration of the right hip joint effusion may be obtained.
--- NOTE | 2017-07-08 16:37 | CARD ---
APPROVED REPORT EKG Measurement Heart [id number] <Conclusion> Sinus tachycardia Otherwise normal ECG
[2017-07-08] MEDS ORDERED: Pneumococcal 23-Valent Vaccine IM ONE (16:42)
[2017-07-09 08:19] LABS: HEMATOCRIT 33.2 % (36.0-48.0); MEAN CELL VOLUME 76.9 fl (80.0-105.0); MEAN CORPUSCULAR HGB CONC 32.5 g/dl (31.0-37.0); MEAN PLATELET VOLUME 7.8 fl (7.0-11.0); RED CELL DISTRIBUTION WIDTH 15.6 % (11.5-14.5); WHITE BLOOD COUNT 12.6 10^3/ul (4.5-11.0)
[2017-07-09] MEDS ORDERED: Morphine 2 mg/ml ISec IVP PRN ×2 (08:22→12:09)
[2017-07-09 08:27] LABS: BLOOD UREA NITROGEN 30 mg/dL (7-21); CARBON DIOXIDE 27 mmol/L (21-33); CHLORIDE 97 mmol/L (98-107); GFR AFRICAN-AMERICAN > 60; GLUCOSE,RANDOM 106 mg/dL (70-110); POTASSIUM 3.9 mmol/L (3.6-5.0); SODIUM 138 mmol/L (132-148)
--- NOTE | 2017-07-09 11:39 | CP.PCM.PN ---
Subjective - Date & Time of Evaluation Date of Evaluation: 07/09/17 Time of Evaluation: 08:00 - Subjective Subjective: Patient seen and examined at bedside. Complains of right hip pain. States she has had this pain for about 1 year. Denies any recent falls or trauma. Also complains of nausea but denies any abdominal pain. Review of Systems - Review of Systems All systems: reviewed and no additional remarkable complaints except - Constitutional Constitutional: absent: Fever, Chills - EENT Ears: absent: Dizziness - Cardiovascular Cardiovascular: absent: Chest Pain, Dyspnea on Exertion - Respiratory Respiratory: absent: Cough, Dyspnea - Gastrointestinal Gastrointestinal: Nausea. absent: Abdominal Pain, Vomiting - Genitourinary Genitourinary: absent: Pyuria - Musculoskeletal Additional comments: right hip pain - Neurological Neurological: absent: Dizziness - Psychiatric Psychiatric: Anxiety Objective - Vital Signs/Intake and Output Vital Signs (last 24 hours): Temp Pulse Resp BP Pulse Ox 99 F 101 H 20 177/155 H 97 07/09/17 06:00 07/09/17 11:20 07/09/17 06:00 07/09/17 11:20 07/09/17 06:00 Intake and Output: 07/09/17 07/09/17 06:59 18:59 Intake Total 120 Output Total 400 Balance -280 - Medications Medications: Current Medications Amlodipine Besylate (Norvasc) 5 mg PO DAILY [facility] Clonidine HCl (Catapres) 0.1 mg PO BID PRN PRN Reason: Systolic Blood Pressure Last Admin: 07/09/17 11:17 Dose: 0.1 mg Cyclobenzaprine HCl (Flexeril) 10 mg PO Q8H [facility] Last Admin: 07/09/17 08:43 Dose: 10 mg Docusate Sodium (Colace) 100 mg PO DAILY [facility] Last Admin: 07/09/17 11:17 Dose: 100 mg Enoxaparin Sodium (Lovenox) 30 mg SC DAILY [facility] PRN Reason: Protocol Escitalopram Oxalate (Lexapro) 10 mg PO DAILY [facility] Last Admin: 07/09/17 11:17 Dose: 10 mg Furosemide (Lasix) 20 mg PO DAILY [facility] Last Admin: 07/09/17 11:20 Dose: 20 mg Gabapentin (Neurontin) 300 mg PO TID [facility] PRN Reason: Protocol Last Admin: 07/09/17 11:17 Dose: 300 mg Metoprolol Tartrate (Lopressor) 25 mg PO BID [facility] Last Admin: 07/09/17 11:20 Dose: 25 mg Morphine Sulfate (Morphine) 2 mg IVP Q6H PRN PRN Reason: Pain, severe (8-10) Last Admin: 07/09/17 08:40 Dose: 2 mg Ondansetron HCl (Zofran Odt) 4 mg PO Q6 PRN PRN Reason: Nausea/Vomiting Last Admin: 07/09/17 08:43 Dose: 4 mg Ondansetron HCl (Zofran Inj) 4 mg IVP Q6H PRN PRN Reason: Nausea/Vomiting Last Admin: 07/09/17 08:43 Dose: 4 mg Pantoprazole Sodium (Protonix Ec Tab) 40 mg PO DAILY [facility] Last Admin: 07/08/17 10:26 Dose: 40 mg Trazodone HCl (Desyrel) 1 mg PO [facility] Vitamin D (Vitamin D 400 Intl Units Tab) 400 intlu PO DAILY [facility] - Labs Labs: 07/09/17 08:11 07/09/17 08:11 PT 12.0 Seconds (9.9-11.8) H 07/08/17 05:10 INR 1.11 (0.93-1.08) H 07/08/17 05:10 APTT 29.2 Seconds (23.7-30.8) 07/08/17 05:10 - Constitutional Appears: Well, No Acute Distress - Head Exam Head Exam: NORMAL INSPECTION - Eye Exam Eye Exam: EOMI - ENT Exam ENT Exam: Normal Exam - Neck Exam Neck Exam: Full ROM - Respiratory Exam Respiratory Exam: Clear to Ausculation Bilateral. absent: Rhonchi, Wheezes - Cardiovascular Exam Cardiovascular Exam: REGULAR RHYTHM, +S1, +S2 - GI/Abdominal Exam GI & Abdominal Exam: Soft, Normal Bowel Sounds. absent: Tenderness, Organomegaly - Extremities Exam Extremities Exam: absent: Calf Tenderness, Pedal Edema - Neurological Exam Neurological Exam: Alert, Awake, Oriented x3 - Psychiatric Exam Psychiatric exam: Normal Mood Assessment and Plan - Assessment and Plan (Free Text) Plan: This is a 46 year old female with past medical history of hepatitis C, arthritis , depression and heroine abuse who was transferred from psychiatric unit for uncontrolled hypertension and withdrawal symptoms. 1. Uncontrolled hypertension / tachycardia / nausea - Likely secondary to withdrawal symptoms. Continue with clonidine prn. She is also on metoprolol and norvasc is added as well. Continue with zofran prn for nausea. 2. Right hip pain - CT hip shows severe destruction at the right femoral head and right hip joint associated with superior subluxation of the right femoral head relative to the acetabulum and moderate to large right hip joint effusion. Orthopedics evaluation is requested. Continue with morphine prn for pain. 3. Depression - Patient is currently on lexapro and trazodone. Psychiatry follow up is requested. 4. Hepatitis C - Recommended outpatient follow up at [facility] hepatitis clinic. 5. Substance abuse - Patient was counselled on risks of continued substance abuse. Patient is on protonix for GI prophylaxis and lovenox for DVT prophylaxis.
[2017-07-09] MEDS: Cholecalciferol 400 Intl Units Tab PO SCH (11:44)
[2017-07-09] MEDS: Pantoprazole 40 mg EC Tab PO SCH (11:44)
[2017-07-09] MEDS ORDERED: Morphine 4 mg/ml ISec IVP PRN (12:17)
[2017-07-09] MEDS ORDERED: Enoxaparin 30 mg Syringe SC ONE (12:49)
--- NOTE | 2017-07-09 13:34 | CP.PCM.CON ---
History of Present Illness - History of Present Illness History of Present Illness: ID: [id number] femaLE cc- SEVERE R hip pain andrestruicted ROM- pt with severe contractures R hip/pt a heroin addict \HPI pt admitted to [facility] WITH r HIP PAIN ANDRESTUICTED rom AND MULTIPLE CONTRACTUREs- pt is an active heroin user wioth last dose approx 3 days. Pt escalating her use of pain meds at [facility], anhd is now maintained on dilaudid. Pt poor candidate for replacement at this point for mulitple reasons , including active heroin addcition/ and physiologic contractures Past Patient History - Infectious Disease Hx of Infectious Diseases: None - Past Social History Smoking Status: Current Some Days Smoker - CARDIAC Hx Cardiac Disorders: Yes Hx Hypercholesterolemia: Yes Hx Hypertension: Yes - PULMONARY Hx Respiratory Disorders: Yes (SMOKED CIGARETTES H/O) Hx Tuberculosis: No - NEUROLOGICAL Hx Neurological Disorder: Yes HX Cerebrovascular Accident: No Hx Seizures: No Other/Comment: NEUROPATHY - HEENT Hx HEENT Problems: No - RENAL Hx Chronic Kidney Disease: No - ENDOCRINE/METABOLIC Hx Endocrine Disorders: No - HEMATOLOGICAL/ONCOLOGICAL Hx Blood Disorders: Yes Hx Hepatitis C: Yes (SEXUAL CONTACT) - INTEGUMENTARY Hx Dermatological Problems: Yes (TATTOOS) - MUSCULOSKELETAL/RHEUMATOLOGICAL Hx Musculoskeletal Disorders: Yes Hx Arthritis: Yes Hx Degenerative Joint Disease: Yes Hx Falls: Yes (DENIES FALLING RECENTLY) Hx Osteoarthritis: Yes Hx Osteoporosis: Yes Other/Comment: DJD of R hip - GASTROINTESTINAL Hx Gastrointestinal Disorders: Yes (CONSTIPATION,HEPC,N/V) Hx Gastroesophageal Reflux: Yes - GENITOURINARY/GYNECOLOGICAL Hx Genitourinary Disorders: No Hx Sexually Transmitted Disorders: No - PSYCHIATRIC Hx Psychophysiologic Disorder: Yes (USED TO SNORT HEROINE,NEVER BEEN TO A PROGRAM.) Hx Anxiety: Yes Hx Depression: Yes Hx Substance Use: Yes (HEROINE USE.LAST USED 2 D AGO.> 2 BAGS-SNORTED. DENIES IVDU.) - SURGICAL HISTORY Hx Surgeries: Yes (C/S X 2) - ANESTHESIA Hx Anesthesia: No Meds Allergies/Adverse Reactions: Allergies Allergy/AdvReac Type Severity Reaction Status Date / Time No Known Allergies Allergy Verified 07/08/17 11:45 - Medications Medications: Current Medications Amlodipine Besylate (Norvasc) 5 mg PO DAILY [facility] Last Admin: 07/09/17 11:44 Dose: 5 mg Clonidine HCl (Catapres) 0.1 mg PO BID PRN PRN Reason: Systolic Blood Pressure Last Admin: 07/09/17 11:17 Dose: 0.1 mg Cyclobenzaprine HCl (Flexeril) 10 mg PO Q8H [facility] Last Admin: 07/09/17 08:43 Dose: 10 mg Docusate Sodium (Colace) 100 mg PO DAILY [facility] Last Admin: 07/09/17 11:17 Dose: 100 mg Enoxaparin Sodium (Lovenox) 30 mg SC DAILY [facility] PRN Reason: Protocol Escitalopram Oxalate (Lexapro) 10 mg PO DAILY [facility] Last Admin: 07/09/17 11:17 Dose: 10 mg Furosemide (Lasix) 20 mg PO DAILY [facility] Last Admin: 07/09/17 11:20 Dose: 20 mg Gabapentin (Neurontin) 300 mg PO TID [facility] PRN Reason: Protocol Last Admin: 07/09/17 11:17 Dose: 300 mg Hydromorphone HCl (Dilaudid) 1 mg IVP Q4H PRN PRN Reason: Pain, severe (8-10) Metoprolol Tartrate (Lopressor) 25 mg PO BID [facility] Last Admin: 07/09/17 11:20 Dose: 25 mg Ondansetron HCl (Zofran Odt) 4 mg PO Q6 PRN PRN Reason: Nausea/Vomiting Last Admin: 07/09/17 08:43 Dose: 4 mg Ondansetron HCl (Zofran Inj) 4 mg IVP Q6H PRN PRN Reason: Nausea/Vomiting Last Admin: 07/09/17 08:43 Dose: 4 mg Pantoprazole Sodium (Protonix Ec Tab) 40 mg PO DAILY [facility] Last Admin: 07/09/17 11:44 Dose: 40 mg Trazodone HCl (Desyrel) 50 mg PO HS [facility] Vitamin D (Vitamin D 400 Intl Units Tab) 400 intlu PO DAILY [facility] Last Admin: 07/09/17 11:44 Dose: 400 intlu Physical Exam - Additional Findings Additional findings: systemic as per Dr Terrence Corbettetal stance/gait- defrred pt with severe contractures hip/unable to bring lower ext to extension/ pt sgtill detoxing from heroin and is currently on dilaudid Results - Vital Signs Recent Vital Signs: Last Vital Signs Temp 98.2 F 07/09/17 12:00 Pulse 105 H 07/09/17 12:00 Resp 20 07/09/17 12:00 BP 177/105 H 07/09/17 12:00 Pulse Ox 97 07/09/17 06:00 - Labs Result Diagrams: 07/09/17 08:11 07/09/17 08:11 Labs: Laboratory Results - last 24 hr 07/08/17 07/09/17 07/09/17 Unknown 08:11 08:11 WBC 12.6 H RBC 4.32 Hgb 10.8 L Hct 33.2 L MCV 76.9 L MCH 25.0 MCHC 32.5 RDW 15.6 H Plt Count 451 H MPV 7.8 Sodium 138 Potassium 3.9 Chloride 97 L Carbon Dioxide 27 Anion Gap 18 BUN 30 H Creatinine 0.8 Est GFR ( Amer) > 60 Est GFR (Non-Af Amer) > 60 Random Glucose 106 Calcium 10.0 25-OH Vitamin D Total 20.2 L - Impressions Impression: Imaging CT- [id number] severe destrucftion of femoral head with subluxation and evidence of fixed contractures Assessment & Plan - Assessment and Plan (Free Text) Assessment: A_- 1) severe destruction of femoral head- no systemic or local evdience for sepsis 2)active heroin addictionm P- pain managemtn consult physio IN MY OPINION, PT is NOT A CANDIDATE FOR hip replacement- there is no evidence for active sepsis, but joint does exhibit degenerative joint disease- multiple contractures at this point militate even agaist satisfactory positioning for joint arthroplasty [physical therapy and paIN MANAGEMNT PSYCHOLOGICAL SUPPORT FOR DRUG DETOX Thank you for the consult No ortho intervention indicated at thios point in tiome in my opinion
[2017-07-09] MEDS: HYDROmorphone 1 mg/ml ISec IVP PRN ×2 (14:41→20:51)
[2017-07-09 20:37] LABS: URINE BILIRUBIN NEGATIVE (NEGATIVE); URINE BLOOD LARGE (NEGATIVE); URINE GLUCOSE (UA) NEGATIVE (NEGATIVE); URINE KETONE NEGATIVE (NEGATIVE); URINE LEUKOCYTE ESTERASE NEGATIVE Leu/uL (NEGATIVE); URINE PROTEIN 30 mg/dL (<30 mg/dL)
[2017-07-09 20:39] LABS: URINE APPEARANCE CLEAR (CLEAR); URINE COLOR YELLOW (YELLOW); URINE RBC 25 - 30 /hpf (0-2)
[2017-07-09 20:40] LABS: URINE BACTERIA MANY (NEG)
[2017-07-10] MEDS: HYDROmorphone 1 mg/ml ISec IVP PRN ×6 (00:58→21:22)
[2017-07-10 06:46] LABS: HEMATOCRIT 30.4 % (36.0-48.0); MEAN CELL VOLUME 78.1 fl (80.0-105.0); MEAN CORPUSCULAR HEMOGLOBIN 23.9 pg (25.0-35.0); MEAN CORPUSCULAR HGB CONC 30.6 g/dl (31.0-37.0); MEAN PLATELET VOLUME 8.3 fl (7.0-11.0); RED CELL DISTRIBUTION WIDTH 15.7 % (11.5-14.5); WHITE BLOOD COUNT 10.3 10^3/ul (4.5-11.0)
[2017-07-10 07:39] LABS: BLOOD UREA NITROGEN 25 mg/dL (7-21); CALCIUM 9.3 mg/dL (8.4-10.5); CARBON DIOXIDE 29 mmol/L (21-33); CHLORIDE 94 mmol/L (95-110); GFR AFRICAN-AMERICAN > 60; GLUCOSE,RANDOM 103 mg/dL (70-110); POTASSIUM 3.5 mmol/L (3.6-5.0); SODIUM 133 mmol/L (132-148)
[2017-07-10] MEDS ORDERED: Potassium Chloride 40 mEq/30 ml LIQ UD PO ONE (07:46)
[2017-07-10] MEDS: Cholecalciferol 400 Intl Units Tab PO SCH (09:05)
[2017-07-10] MEDS: Pantoprazole 40 mg EC Tab PO SCH (09:06)
[2017-07-10] MEDS: Enoxaparin 30 mg Syringe SC SCH (09:07)
[2017-07-10 09:45] LABS: IRON 18 ug/dL (45-180)
--- NOTE | 2017-07-10 10:30 | CP.PCM.PN ---
Subjective - Date & Time of Evaluation Date of Evaluation: 07/10/17 Time of Evaluation: 08:05 - Subjective Subjective: Patient seen and examined at bedside. No acute events reported overnight. She still reports right hip pain which is better after starting dilaudid. Nausea has resolved and her blood pressure is also better this morning. Denies any other complaints. Review of Systems - Review of Systems All systems: reviewed and no additional remarkable complaints except - Constitutional Constitutional: absent: Fever, Chills - EENT Eyes: absent: Blurred Vision Ears: absent: Dizziness - Cardiovascular Cardiovascular: absent: Chest Pain, Dyspnea - Respiratory Respiratory: absent: Cough, Dyspnea - Gastrointestinal Gastrointestinal: absent: Abdominal Pain, Nausea, Vomiting - Genitourinary Genitourinary: absent: Dysuria - Musculoskeletal Additional comments: right hip pain - Neurological Neurological: absent: Dizziness - Psychiatric Psychiatric: absent: Anxiety Objective - Vital Signs/Intake and Output Vital Signs (last 24 hours): Temp Pulse Resp BP Pulse Ox 99 F 101 H 18 113/71 96 07/10/17 06:00 07/10/17 09:07 07/10/17 06:00 07/10/17 09:07 07/10/17 06:00 Intake and Output: 07/10/17 07/10/17 06:59 18:59 Intake Total 30 Balance 30 - Medications Medications: Current Medications Amlodipine Besylate (Norvasc) 5 mg PO DAILY [facility] Last Admin: 07/10/17 09:05 Dose: 5 mg Clonidine HCl (Catapres) 0.1 mg PO BID PRN PRN Reason: Systolic Blood Pressure Last Admin: 07/09/17 11:17 Dose: 0.1 mg Cyclobenzaprine HCl (Flexeril) 10 mg PO Q8H [facility] Last Admin: 07/10/17 08:57 Dose: 10 mg Docusate Sodium (Colace) 100 mg PO DAILY [facility] Last Admin: 07/10/17 09:06 Dose: 100 mg Enoxaparin Sodium (Lovenox) 30 mg SC DAILY [facility] PRN Reason: Protocol Last Admin: 07/10/17 09:07 Dose: 30 mg Escitalopram Oxalate (Lexapro) 10 mg PO DAILY [facility] Last Admin: 07/10/17 09:06 Dose: 10 mg Furosemide (Lasix) 20 mg PO DAILY [facility] Last Admin: 07/10/17 09:06 Dose: 20 mg Gabapentin (Neurontin) 300 mg PO TID [facility] PRN Reason: Protocol Last Admin: 07/10/17 09:07 Dose: 300 mg Hydromorphone HCl (Dilaudid) 1 mg IVP Q4H PRN PRN Reason: Pain, severe (8-10) Last Admin: 07/10/17 08:57 Dose: 1 mg Metoprolol Tartrate (Lopressor) 25 mg PO BID [facility] Last Admin: 07/10/17 09:07 Dose: 25 mg Ondansetron HCl (Zofran Odt) 4 mg PO Q6 PRN PRN Reason: Nausea/Vomiting Last Admin: 07/09/17 08:43 Dose: 4 mg Ondansetron HCl (Zofran Inj) 4 mg IVP Q6H PRN PRN Reason: Nausea/Vomiting Last Admin: 07/09/17 08:43 Dose: 4 mg Pantoprazole Sodium (Protonix Ec Tab) 40 mg PO DAILY [facility] Last Admin: 07/10/17 09:06 Dose: 40 mg Trazodone HCl (Desyrel) 50 mg PO HS [facility] Last Admin: 07/09/17 23:54 Dose: Not Given Vitamin D (Vitamin D 400 Intl Units Tab) 400 intlu PO DAILY [facility] Last Admin: 07/10/17 09:05 Dose: 400 intlu - Labs Labs: 07/10/17 06:00 07/10/17 06:00 PT 12.0 Seconds (9.9-11.8) H 07/08/17 05:10 INR 1.11 (0.93-1.08) H 07/08/17 05:10 APTT 29.2 Seconds (23.7-30.8) 07/08/17 05:10 - Constitutional Appears: Well, No Acute Distress - Head Exam Head Exam: NORMAL INSPECTION - Eye Exam Eye Exam: EOMI - ENT Exam ENT Exam: Normal Exam - Neck Exam Neck Exam: Full ROM - Respiratory Exam Respiratory Exam: Clear to Ausculation Bilateral. absent: Rales, Wheezes - Cardiovascular Exam Cardiovascular Exam: Tachycardia, +S1, +S2 - GI/Abdominal Exam GI & Abdominal Exam: Soft, Normal Bowel Sounds. absent: Tenderness, Organomegaly - Extremities Exam Extremities Exam: absent: Pedal Edema Additional comments: contracted LE; negative calf tenderness - Neurological Exam Neurological Exam: Alert, Awake, Oriented x3 - Psychiatric Exam Psychiatric exam: Normal Affect, Normal Mood Assessment and Plan - Assessment and Plan (Free Text) Plan: This is a 46 year old female with past medical history of hepatitis C, arthritis , depression and heroine abuse who was transferred from psychiatric unit for uncontrolled hypertension and withdrawal symptoms. 1. Uncontrolled hypertension / tachycardia / nausea - Likely secondary to withdrawal symptoms. Symptoms have improved. She is currently on metoprolol, norvasc, clonidine prn and zofran prn. 2. Right hip pain - CT hip showed severe destruction at the right femoral head and right hip joint associated with superior subluxation of the right femoral head relative to the acetabulum and moderate to large right hip joint effusion. Orthopedics evaluation was appreciated who recommended pain control, PT evaluation and outpatient ortho follow up. She is currently on dilaudid prn for pain. PT evaluation is pending. 3. Depression - Patient is currently on lexapro and trazodone. Psychiatry follow up was requested and pending. 4. Hepatitis C - Recommended outpatient follow up at [facility] hepatitis clinic. 5. Substance abuse - Patient was counselled on risks of continued substance abuse. 6. Anemia - Hemoglobin is 9.5 today. Anemia workup including iron studies are ordered. Will continue to monitor closely. 7. Hypokalemia - Will replete and repeat. Patient is on protonix for GI prophylaxis and lovenox for DVT prophylaxis.
[2017-07-10 13:33] LABS: FOLATE 7.1 ng/mL
[2017-07-11] MEDS: HYDROmorphone 1 mg/ml ISec IVP PRN ×5 (01:42→21:57)
--- NOTE | 2017-07-11 08:52 | CON ---
HISTORY OF PRESENT ILLNESS: The patient is a 46-year-old single female with a history of depression, opiate dependency, who was initially admitted to the psychiatric unit but then transferred to the medical floor due to symptoms of vomiting and uncontrolled hypertension. Psychiatry is following up with her on the unit to monitor her psychiatric progress while she is being medically optimized. I met with the patient at bedside. The patient reports that she is not feeling very well and that she still feels ill. She is well-oriented to the month, year, location, and circumstances. She remains depressed, but she is not suicidal. She is not hopeless and indicates that thus far she is not hallucinating either. Her thought process is coherent, and her response is relevant to questioning, delusions were not elicited. As mentioned, the patient still feels nauseated. She also reports that she is not sleeping very well. Currently, tolerating Lexapro that is being prescribed to her. However, as noted she does not sleep very well and requests a sleep aid in this regard. Insight and judgement considered to be fair at this time. PSYCHIATRIC HISTORY: The patient denies any psychiatric admissions. She denies any history of suicide attempt. SOCIAL HISTORY: The patient was born and raised in [place]. She is single. She has 3 children. She is homeless. She uses heroin; however, she has not used it since 2 weeks , at her peak, she was using 5 bags of heroin intermittently daily. Denies any alcohol usage. MEDICATIONS: Relevant psychiatric medication include Lexapro 10 mg daily. PHYSICAL EXAMINATION: VITAL SIGNS: Still elevated exam today. Temperature respiratory rate. LABORATORY DATA: Labs were also reviewed by this provider in the unit. IMPRESSION: Major depressive disorder, severe, constipation, substance-induced mood disorder, and opiate use disorder, severe. RECOMMENDATIONS: We will continue with medications as prescribed, Lexapro 10 mg daily for depression. We will also initiate Sonata 5 mg at bedtime to help with insomnia and follow up with the patient in the a.m. to monitor her progress. Ailyn Whitaker MD
--- NOTE | 2017-07-11 09:25 | CON ---
DATE: 07/10/2017 HISTORY OF PRESENT ILLNESS: The patient is a 46-year-old white female with a history of depression and opiate dependence whose psychiatry is on medical floor, after she was transferred from psychiatry for uncontrolled hypertension and vomiting. I already have met with the patient at bedside yesterday and today and she reports that she continues to be depressed without change, though she still is not hopeless or suicidal. She is feeling better physically. She continues to be alert and oriented to date, month, year, location, and circumstances. Thought process is coherent and responses are relevant and consistent. Thus far, she is tolerating Lexapro. The patient refused trazodone last night because it gives panic attack, however, she indicated she slept better last night. Insight and judgement are considered to be fair at this time. The patient denies having any hallucinations and delusion were not elicited. PHYSICAL EXAMINATION VITAL SIGNS: Vitals were reviewed by the provider and they are improved today. LABORATORY DATA: Labs were also reviewed by the provider and hemoglobin and hematocrit appear to be decreasing from a value of 12.3 and 37.3 to a value of 9.3 to 30.4 two days later. MEDICATIONS: Psychiatric medication include Lexapro 10 mg daily and trazodone 50 mg at bedtime as scheduled. IMPRESSION: Major depression and opiate tendency. PLAN: Continue with Lexapro 10 mg daily for depression. We will discontinue trazodone as the patient reports that it has increased her anxiety in the past. The patient slept relatively well last night and we will not restart sleep aide at this time. Psychiatry will continue to follow up with the patient on the unit and assess for possible transfer back to psychiatry. The patient was assessed yesterday on 07/09/2017 please refer to dictation id [id number] for full assessment. Ailyn Whitaker MD
[2017-07-11 09:29] LABS: BASO # 0.02 K/mm3 (0.0-2.0); BASO % 0.2 % (0.0-3.0); EOS # 0.1 (0.0-0.7); EOS % 1.3 % (1.5-5.0); GRAN # 6.55 (1.4-6.5); GRAN % 69.4 % (50.0-68.0); HEMATOCRIT 29.9 % (36.0-48.0); LYMPH % 20.7 % (22.0-35.0); MEAN CELL VOLUME 77.9 fl (80.0-105.0); MEAN CORPUSCULAR HEMOGLOBIN 24.7 pg (25.0-35.0); MEAN CORPUSCULAR HGB CONC 31.8 g/dl (31.0-37.0); MEAN PLATELET VOLUME 7.9 fl (7.0-11.0); MONO # 0.8 (0.1-0.6); MONO % 8.4 % (1.0-6.0); RED CELL DISTRIBUTION WIDTH 15.3 % (11.5-14.5); WHITE BLOOD COUNT 9.4 10^3/ul (4.5-11.0)
[2017-07-11 09:45] LABS: ALB/GLOB RATIO 0.8 (1.1-1.8); ALKALINE PHOSPHATASE 88 U/L (38-126); ALT/SGPT 26 U/L (7-56); AST/SGOT 39 U/L (14-36); BILIRUBIN,TOTAL 0.5 mg/dL (0.2-1.3); BLOOD UREA NITROGEN 23 mg/dL (7-21); CALCIUM 9.6 mg/dL (8.4-10.5); CARBON DIOXIDE 25 mmol/L (21-33); CHLORIDE 99 mmol/L (98-107); GFR AFRICAN-AMERICAN > 60; GLUCOSE,RANDOM 125 mg/dL (70-110); POTASSIUM 4.2 mmol/L (3.6-5.0); SODIUM 135 mmol/L (132-148); TOTAL PROTEIN 7.9 g/dL (5.8-8.3)
[2017-07-11] MEDS: Cholecalciferol 400 Intl Units Tab PO SCH (11:19)
[2017-07-11] MEDS: Enoxaparin 30 mg Syringe SC SCH (11:20)
[2017-07-11] MEDS: Pantoprazole 40 mg EC Tab PO SCH (11:32)
--- NOTE | 2017-07-11 13:43 | PN ---
DATE: SUBJECTIVE: The patient is a 46-year-old female. The patient was initially transferred from [place] for evaluation of possible suicidal ideation. The patient was admitted to the psychiatric inpatient unit overnight. The patient developed high blood pressure and vomiting. The patient was transferred to the emergency room first and then on the medical side. The patient was followed up Dr. Whitaker over this weekend. Lexapro was started. Trazodone was started and it was discontinued because the patient had worsening of anxiety on trazodone. This marketing writer is following up on this patient today morning. The patient presented to be alert and oriented, pleasant and cooperative. The patient said that she was depressed for the past 2 weeks because her mobility was affected by osteoarthritis and she had severe hip pain and also she was not able to ambulate. The patient just walked to the social media manager at the jail and she was depressed and she said that she had thoughts of harming herself, but the patient denied any intents or plans of killing herself. That is why the patient came to the hospital. The patient denied that she has any thoughts of harming herself now. The patient reports that her pain is adequately dressed by medical team. The patient reported that she has panic attacks for what she has history of being taking Paxil and she did not tolerate that well. The patient did not hear any voices. Denied seeing things. Denies paranoid ideations. So far the patient tolerates medication well. No side effects observed or reported. PHYSICAL EXAMINATION: VITAL SIGNS: Vital signs are stable. Temperature is 99.2, pulse is 108, blood pressure 128/70, respirations 20, oxygen saturations 96%. MEDICATIONS: Reviewed. The patient is on Norvasc, Clonidine, Flexeril 10 mg q. 8 hours scheduled, Colace, Lovenox, Lexapro 10 mg daily was started by Dr. Whitaker, Lasix, Neurontin 300 mg 3 times a day, Dilaudid 1 mg IV push q. 4 hours p.r.n., Lopressor, Zofran, Protonix as well as vitamin D. LABORATORY DATA: Labs reviewed. WBC is trending down at 9.4 today, hemoglobin 9.5, hematocrit 29.9. Coagulation reviewed. Chemistry reviewed. AST and ALT within normal limits. Urinalysis; protein, blood large and urobilinogen 1.0 on 07/09/2017. MENTAL STATUS EXAMINATION: The patient presented to be alert and oriented. Pleasant and cooperative. The patient seems to be fair historian. The patient has fair eye contact. Speech was normal rate, tone, quality, and quantity. Thought process was coherent and goal directed. Thought content, the patient denied visual, auditory, or tactile hallucinations. Denied paranoid ideation. The patient denied thoughts of harming herself or others. Denied intents or plan. Mood described as improving. Insight and judgment is fair. Impulses are well controlled. Collateral from the nursing staff, the patient is pleasant, cooperative, does not appear to have any aggressive for agitated behavior. Overall present well, but asking for Dilaudid [id number]. IMPRESSION: Rule out mood disorder due to change in medical condition. The patient had degenerative arthritis, which affects her mobility and that is why the patient is feeling very depressed and down. The patient said that if her pain would be addressed, she will be not depressed. The patient has multiple medical issues, please see medical team notes for more detailed information. PLAN: Continue current management. Lexapro was started by Dr. Whitaker. The patient tolerates that well. The patient reports that her mood is improving as well as pain is adequately addressed by medical team. The patient denied both of harming herself or others. The patient poses no imminent danger to self or others. This marketing writer will sign off. Whenever the patient goes to the jail, seems to be seen by psychiatrist within 72 hours after discharge. Should you have any questions, give me a call back. Re-consult as needed. Thank you very much for letting me to participate in the care of your patient. Galina Tucker MD
--- NOTE | 2017-07-11 17:08 | CP.PCM.PN ---
<Arsen Barrios - Last Filed: 07/11/17 17:13> Subjective - Date & Time of Evaluation Date of Evaluation: 07/11/17 Time of Evaluation: 09:05 - Subjective Subjective: Patient seen and examined at bedside. The patient is still reporting right hip pain and difficulty moving that leg. The patient denies any chest pain, shortness of breath, nausea, vomiting, or any other complaints. Objective - Vital Signs/Intake and Output Vital Signs (last 24 hours): Temp Pulse Resp BP Pulse Ox 98.7 F 97 H 21 125/85 96 07/11/17 12:00 07/11/17 14:00 07/11/17 12:00 07/11/17 12:00 07/11/17 06:00 Intake and Output: 07/11/17 07/11/17 06:59 18:59 Intake Total 480 Output Total 200 Balance 280 - Medications Medications: Current Medications Amlodipine Besylate (Norvasc) 5 mg PO DAILY [facility] Last Admin: 07/11/17 11:21 Dose: 5 mg Clonidine HCl (Catapres) 0.1 mg PO BID PRN PRN Reason: Systolic Blood Pressure Last Admin: 07/09/17 11:17 Dose: 0.1 mg Cyclobenzaprine HCl (Flexeril) 10 mg PO Q8H [facility] Last Admin: 07/11/17 08:47 Dose: 10 mg Docusate Sodium (Colace) 100 mg PO DAILY [facility] Last Admin: 07/11/17 11:20 Dose: 100 mg Enoxaparin Sodium (Lovenox) 30 mg SC DAILY [facility] PRN Reason: Protocol Last Admin: 07/11/17 11:20 Dose: 30 mg Escitalopram Oxalate (Lexapro) 10 mg PO DAILY [facility] Last Admin: 07/11/17 11:21 Dose: 10 mg Furosemide (Lasix) 20 mg PO DAILY [facility] Last Admin: 07/11/17 11:21 Dose: 20 mg Gabapentin (Neurontin) 300 mg PO TID [facility] PRN Reason: Protocol Last Admin: 07/11/17 15:04 Dose: 300 mg Hydromorphone HCl (Dilaudid) 1 mg IVP Q6H PRN PRN Reason: Pain, severe (8-10) Metoprolol Tartrate (Lopressor) 25 mg PO BID [facility] Last Admin: 09/18/17 11:21 Dose: 25 mg Ondansetron HCl (Zofran Odt) 4 mg PO Q6 PRN PRN Reason: Nausea/Vomiting Last Admin: 07/09/17 08:43 Dose: 4 mg Ondansetron HCl (Zofran Inj) 4 mg IVP Q6H PRN PRN Reason: Nausea/Vomiting Last Admin: 07/09/17 08:43 Dose: 4 mg Oxycodone/Acetaminophen (Percocet 5/325 Mg Tab) 1 tab PO Q6H PRN PRN Reason: Pain, moderate (4-7) Stop: 07/14/17 15:29 Pantoprazole Sodium (Protonix Ec Tab) 40 mg PO DAILY [facility] Last Admin: 07/11/17 11:32 Dose: 40 mg Vitamin D (Vitamin D 400 Intl Units Tab) 400 intlu PO DAILY [facility] Last Admin: 07/11/17 11:19 Dose: 400 intlu - Labs Labs: 07/11/17 09:10 07/11/17 09:10 PT 12.0 Seconds (9.9-11.8) H 07/08/17 05:10 INR 1.11 (0.93-1.08) H 07/08/17 05:10 APTT 29.2 Seconds (23.7-30.8) 07/08/17 05:10 - Head Exam Head Exam: ATRAUMATIC, NORMAL INSPECTION, NORMOCEPHALIC - Eye Exam Eye Exam: EOMI, Normal appearance, PERRL Pupil Exam: NORMAL ACCOMODATION, PERRL - ENT Exam ENT Exam: Mucous Membranes Moist - Neck Exam Neck Exam: Normal Inspection - Respiratory Exam Respiratory Exam: Clear to Ausculation Bilateral, NORMAL BREATHING PATTERN. absent: Respiratory Distress - Cardiovascular Exam Cardiovascular Exam: Tachycardia, +S1, +S2 - GI/Abdominal Exam GI & Abdominal Exam: Soft, Normal Bowel Sounds - Extremities Exam Extremities Exam: Normal Inspection Additional comments: Right hip pain. - Psychiatric Exam Psychiatric exam: Normal Affect - Skin Skin Exam: Dry, Intact, Normal Color Assessment and Plan - Assessment and Plan (Free Text) Assessment: This is a 46 year old female with past medical history of hepatitis C, arthritis , depression and heroine abuse who was transferred from psychiatric unit for uncontrolled hypertension and withdrawal symptoms. Plan: 1. Uncontrolled hypertension / tachycardia / nausea - Likely secondary to withdrawal symptoms and the chronic right hip pain. - Symptoms have improved. -Continue Flexeril and Dilaudid 2. Right hip pain -CT hip showed severe destruction at the right femoral head and right hip joint associated with superior subluxation of the right femoral head relative to the acetabulum and moderate to large right hip joint effusion. Orthopedics evaluation was appreciated who recommended pain control, PT evaluation and outpatient ortho follow up. -Continue Dilaudid prn for pain. -PT evaluation is pending. F/U with rec's. 3. Depression -Psych rec's appreciated. -Continue Lexapro and Trazodone. 4. Hepatitis C -Recommended outpatient follow up at [facility] hepatitis clinic. 5. Substance abuse -Patient was counselled on risks of continued substance abuse. 6. Anemia -Hgb 9.5 today. - Anemia workup including iron studies are ordered. Will continue to monitor closely. 7. Hypokalemia -Will replete and repeat. Will continue to monitor with serial CMP's. <Sterling MORRIS,Donnie - Last Filed: 07/13/17 13:46> Objective - Vital Signs/Intake and Output Vital Signs (last 24 hours): Temp Pulse Resp BP Pulse Ox 98.6 F 109 H 20 134/83 95 07/12/17 16:00 07/12/17 16:00 07/12/17 16:00 07/12/17 16:00 07/12/17 16:00 - Labs Labs: 07/12/17 07:15 07/12/17 07:15 PT 12.0 Seconds (9.9-11.8) H 07/08/17 05:10 INR 1.11 (0.93-1.08) H 07/08/17 05:10 APTT 29.2 Seconds (23.7-30.8) 07/08/17 05:10 Attending/Attestation - Attestation I have personally seen and examined this patient.: Yes I have fully participated in the care of the patient.: Yes I have reviewed all pertinent clinical information, including history, physical exam and plan: Yes Notes (Text): 07/13/17 13:43 Patient was seen and examined with medical billing coder. Agreed with resident assessment and plan. 46 year old female with past medical history of hepatitis C, arthritis, depression and heroine abuse who was transferred from psychiatric unit for uncontrolled hypertension and withdrawal symptoms.Patient withdrawal are improved.Her Blood pressure is better controlled. Right hip pain - CT hip showed severe destruction at the right femoral head and right hip joint associated with superior subluxation of the right femoral head relative to the acetabulum and moderate to large right hip joint effusion. Orthopedics evaluation was appreciated who recommended pain control, PT evaluation and outpatient ortho follow up. We will start on oral Percoet and will wean off Hydromorphone. Management plan was discussed in detail with patient Education was provided.
[2017-07-11] MEDS: Oxycodone/Acetaminophen 5/325 mg Tab PO PRN (17:16)
--- NOTE | 2017-07-11 20:51 | CARD ---
APPROVED REPORT EKG Measurement Heart [id number] <Conclusion> Sinus tachycardia Otherwise normal ECG
[2017-07-12] MEDS: Oxycodone/Acetaminophen 5/325 mg Tab PO PRN ×3 (00:13→14:42)
[2017-07-12 07:23] LABS: BASO # 0.02 K/mm3 (0.0-2.0); BASO % 0.2 % (0.0-3.0); EOS # 0.2 (0.0-0.7); EOS % 2.1 % (1.5-5.0); GRAN # 5.58 (1.4-6.5); GRAN % 62.7 % (50.0-68.0); HEMATOCRIT 30.8 % (36.0-48.0); LYMPH # 2.4 (1.2-3.4); MEAN CELL VOLUME 77.2 fl (80.0-105.0); MEAN CORPUSCULAR HEMOGLOBIN 24.6 pg (25.0-35.0); MEAN CORPUSCULAR HGB CONC 31.8 g/dl (31.0-37.0); MEAN PLATELET VOLUME 8.2 fl (7.0-11.0); MONO # 0.7 (0.1-0.6); RED CELL DISTRIBUTION WIDTH 15.3 % (11.5-14.5); WHITE BLOOD COUNT 8.9 10^3/ul (4.5-11.0)
[2017-07-12 08:15] LABS: BLOOD UREA NITROGEN 20 mg/dL (7-21); CALCIUM 10.1 mg/dL (8.4-10.5); CARBON DIOXIDE 25 mmol/L (21-33); CHLORIDE 101 mmol/L (98-107); GFR AFRICAN-AMERICAN > 60; GLUCOSE,RANDOM 109 mg/dL (70-110); POTASSIUM 4.3 mmol/L (3.6-5.0); SODIUM 138 mmol/L (132-148)
[2017-07-12 08:17] LABS: ALB/GLOB RATIO 0.8 (1.1-1.8); ALKALINE PHOSPHATASE 107 U/L (38-126); ALT/SGPT 47 U/L (7-56); AST/SGOT 53 U/L (14-36); BILIRUBIN,TOTAL 0.6 mg/dL (0.2-1.3); TOTAL PROTEIN 8.3 g/dL (5.8-8.3)
[2017-07-12 08:42] VITALS: RESP 20
[2017-07-12] MEDS: Cholecalciferol 400 Intl Units Tab PO SCH (10:01)
[2017-07-12] MEDS: Pantoprazole 40 mg EC Tab PO SCH (10:04)
[2017-07-12] MEDS: Enoxaparin 30 mg Syringe SC SCH (10:05)
[2017-07-12] MEDS: HYDROmorphone 1 mg/ml ISec IVP PRN ×2 (10:29→16:47)
[2017-07-12] MEDS ORDERED: POLYETHYLENE GLYCOL 3350 17 GM/Dose PACKET PO ONE (13:24)
--- NOTE | 2017-07-12 16:40 | CP.PCM.DIS ---
<Arsen Barrios - Last Filed: 07/12/17 19:33> Provider - Provider Date of Admission: 07/08/17 05:14 Attending physician: Donnie Katz MD Time Spent in preparation of Discharge (in minutes): 45 Hospital Course - Lab Results Lab Results: Most Recent Lab Values WBC 8.9 10^3/ul (4.5-11.0) 07/12/17 07:15 RBC 3.99 10^6/uL (3.5-6.1) 07/12/17 07:15 Hgb 9.8 g/dL (12.0-16.0) L 07/12/17 07:15 Hct 30.8 % (36.0-48.0) L 07/12/17 07:15 MCV 77.2 fl (80.0-105.0) L 07/12/17 07:15 MCH 24.6 pg (25.0-35.0) L 07/12/17 07:15 MCHC 31.8 g/dl (31.0-37.0) 07/12/17 07:15 RDW 15.3 % (11.5-14.5) H 07/12/17 07:15 Plt Count 429 10^3/uL (120.0-450.0) 07/12/17 07:15 MPV 8.2 fl (7.0-11.0) 07/12/17 07:15 Gran % 62.7 % (50.0-68.0) 07/12/17 07:15 Lymph % (Auto) 27.0 % (22.0-35.0) 07/12/17 07:15 [place] % (Auto) 8.0 % (1.0-6.0) H 07/12/17 07:15 Eos % (Auto) 2.1 % (1.5-5.0) 07/12/17 07:15 Baso % (Auto) 0.2 % (0.0-3.0) 07/12/17 07:15 Gran # 5.58 (1.4-6.5) 07/12/17 07:15 Lymph # 2.4 (1.2-3.4) 07/12/17 07:15 [place] # 0.7 (0.1-0.6) H 07/12/17 07:15 Eos # 0.2 (0.0-0.7) 07/12/17 07:15 Baso # 0.02 K/mm3 (0.0-2.0) 07/12/17 07:15 PT 12.0 Seconds (9.9-11.8) H 07/08/17 05:10 INR 1.11 (0.93-1.08) H 07/08/17 05:10 APTT 29.2 Seconds (23.7-30.8) 07/08/17 05:10 Sodium 138 mmol/L (132-148) 07/12/17 07:15 Potassium 4.3 mmol/L (3.6-5.0) 07/12/17 07:15 Chloride 101 mmol/L (98-107) 07/12/17 07:15 Carbon Dioxide 25 mmol/L (21-33) 07/12/17 07:15 Anion Gap 16 (10-20) 07/12/17 07:15 BUN 20 mg/dL (7-21) 07/12/17 07:15 Creatinine 0.6 mg/dL (0.5-1.4) 07/12/17 07:15 Est GFR ( Amer) > 60 07/12/17 07:15 Est GFR (Non-Af Amer) > 60 07/12/17 07:15 Random Glucose 109 mg/dL (70-110) 07/12/17 07:15 Calcium 10.1 mg/dL (8.4-10.5) 07/12/17 07:15 Iron 18 ug/dL (45-180) L 07/10/17 06:30 TIBC 244 ug/dL (265-497) L 07/10/17 06:30 % Saturation 8 % (20-55) L 07/10/17 06:30 Ferritin 167.0 ng/mL 07/10/17 06:30 Total Bilirubin 0.6 mg/dL (0.2-1.3) 07/12/17 07:15 AST 53 U/L (14-36) H D 07/12/17 07:15 ALT 47 U/L (7-56) 07/12/17 07:15 Alkaline Phosphatase 107 U/L (38-126) 07/12/17 07:15 Lactate Dehydrogenase 374 U/L (333-699) 07/08/17 05:10 Total Creatine Kinase < 20 U/L (35-230) L 07/08/17 05:10 Troponin I < 0.01 ng/mL 07/08/17 05:10 Total Protein 8.3 g/dL (5.8-8.3) 07/12/17 07:15 Albumin 3.7 g/dL (3.0-4.8) 07/12/17 07:15 Globulin 4.6 gm/dL 07/12/17 07:15 Albumin/Globulin Ratio 0.8 (1.1-1.8) L 07/12/17 07:15 Vitamin B12 315 pg/mL (239-931) 07/10/17 06:30 25-OH Vitamin D Total 20.2 NG/ML (30.0-100.0) L 07/08/17 Unknown Folate 7.1 ng/mL 07/10/17 06:30 Urine Color Yellow (YELLOW) 07/09/17 18:00 Urine Appearance Clear (CLEAR) 07/09/17 18:00 Urine pH 6.0 (4.7-8.0) 07/09/17 18:00 Ur Specific [place] 1.020 (1.005-1.035) 07/09/17 18:00 Urine Protein 30 mg/dL (<30 mg/dL) H 07/09/17 18:00 Urine Glucose (UA) Negative mg/dL (NEGATIVE) 07/09/17 18:00 Urine Ketones Negative mg/dL (NEGATIVE) 07/09/17 18:00 Urine Blood Large (NEGATIVE) H 07/09/17 18:00 Urine Nitrate Negative (NEGATIVE) 07/09/17 18:00 Urine Bilirubin Negative (NEGATIVE) 07/09/17 18:00 Urine Urobilinogen 1.0 E.U./dL (<1 E.U./dL) H 07/09/17 18:00 Ur Leukocyte Esterase Negative [place]/uL (NEGATIVE) 07/09/17 18:00 Urine RBC 25 - 30 /hpf (0-2) 07/09/17 18:00 Urine WBC 1 - 3 /hpf (0-6) 07/09/17 18:00 Ur Epithelial Cells 6 - 8 /hpf (0-5) 07/09/17 18:00 Urine Bacteria Many (NEG) 07/09/17 18:00 Hyaline Casts 2 - 5 /hpf 07/09/17 18:00 Fine Granular Casts 0 - 2 /hpf (0-2) 07/09/17 18:00 - Hospital Course Hospital Course: This is a 46 year old female with past medical history of Hepatitis C, Osteoporosis, Depression , heroine use, presents from the behavioral health floor for uncontrolled hypertension. She states that she feels her heart raising. She also states she has been vomiting for the past 3 days. The denies any blood in the vomit and states it has been bile. The patient was given Hydralazine and Clonidine with no improvement of her BP. She admits to using heroine 2 days ago and states she took it for the osteoarthritis pain she has in her right leg. She denies any chest pain, SOB, fevers, chills, headache, dizziness, abdominal pain, N/D, back pain or cough. While in the ED she had a portable chest x ray done and a abdomen and pelvis CT scan done which both were negative. She was also given Percocet for pain and admitted. She had a hip Ct done which showed sever destruction of the right femoral head and right hip joint associated with superior subluxation of the right femoral head. She had Ortho consult which told her she was not a candidate for surgery and to manage with PT and pain management. Patient was discharged and advised to follow up with a Pain management doctor and physical therapy doctor as an outpatient. Patient was also given 6 pills of Percocet for pain management and to follow up with a PMD within one week of discharge. Discharge Exam - Head Exam Head Exam: ATRAUMATIC, NORMAL INSPECTION, NORMOCEPHALIC - Eye Exam Eye Exam: EOMI, Normal appearance, PERRL Pupil Exam: NORMAL ACCOMODATION, PERRL. absent: Irregular - Respiratory Exam Respiratory Exam: Clear to PA & Lateral, NORMAL BREATHING PATTERN. absent: Accessory Muscle Use - Cardiovascular Exam Cardiovascular Exam: REGULAR RHYTHM, RRR, +S1, +S2. absent: Gallop, Rubs - GI/Abdominal Exam GI & Abdominal Exam: Normal Bowel Sounds, Unremarkable. absent: Diminished Bowel Sounds - Extremities Exam Additional comments: Right hip and knee in flexion and difficult to extend on examination without causing severe pain. - Back Exam Back exam: NORMAL INSPECTION. absent: paraspinal tenderness - Neurological Exam Neurological exam: Alert, CN II-XII Intact, Oriented x3 - Psychiatric Exam Psychiatric exam: Normal Affect, Normal Mood - Skin Skin Exam: Dry, Intact Discharge Plan - Discharge Medications Prescriptions: oxyCODONE/Acetaminophen [Percocet 5/325 mg Tab] 1 tab PO Q6H PRN #12 tab PRN Reason: Pain, Severe (8-10) - Follow Up Plan Condition: FAIR Disposition: TRANSF TO SNF Instructions: Suicide Prevention for Adults (DC), Hypertension (DC), Fall Prevention (DC) Additional Instructions: 1. Patient advised to follow up with PMD within one week of discharge. 2. Patient advised to seek help for substance abuse. 3. Patient advised to continue to get treatment on her right hip. Patient is to be discharged to rehab facility. 4. Patient advised to return to E.D. for any new or worsening symptoms. <Sterling MORRIS,Micheleglenvillebenito - Last Filed: 07/13/17 13:48> Provider - Provider Date of Admission: 07/08/17 05:14 Attending physician: Donnie Katz MD Hospital Course - Lab Results Lab Results: Most Recent Lab Values WBC 8.9 10^3/ul (4.5-11.0) 07/12/17 07:15 RBC 3.99 10^6/uL (3.5-6.1) 07/12/17 07:15 Hgb 9.8 g/dL (12.0-16.0) L 07/12/17 07:15 Hct 30.8 % (36.0-48.0) L 07/12/17 07:15 MCV 77.2 fl (80.0-105.0) L 07/12/17 07:15 MCH 24.6 pg (25.0-35.0) L 07/12/17 07:15 MCHC 31.8 g/dl (31.0-37.0) 07/12/17 07:15 RDW 15.3 % (11.5-14.5) H 07/12/17 07:15 Plt Count 429 10^3/uL (120.0-450.0) 07/12/17 07:15 MPV 8.2 fl (7.0-11.0) 07/12/17 07:15 Gran % 62.7 % (50.0-68.0) 07/12/17 07:15 Lymph % (Auto) 27.0 % (22.0-35.0) 07/12/17 07:15 [place] % (Auto) 8.0 % (1.0-6.0) H 07/12/17 07:15 Eos % (Auto) 2.1 % (1.5-5.0) 07/12/17 07:15 Baso % (Auto) 0.2 % (0.0-3.0) 07/12/17 07:15 Gran # 5.58 (1.4-6.5) 07/12/17 07:15 Lymph # 2.4 (1.2-3.4) 07/12/17 07:15 [place] # 0.7 (0.1-0.6) H 07/12/17 07:15 Eos # 0.2 (0.0-0.7) 07/12/17 07:15 Baso # 0.02 K/mm3 (0.0-2.0) 07/12/17 07:15 PT 12.0 Seconds (9.9-11.8) H 07/08/17 05:10 INR 1.11 (0.93-1.08) H 07/08/17 05:10 APTT 29.2 Seconds (23.7-30.8) 07/08/17 05:10 Sodium 138 mmol/L (132-148) 07/12/17 07:15 Potassium 4.3 mmol/L (3.6-5.0) 07/12/17 07:15 Chloride 101 mmol/L (98-107) 07/12/17 07:15 Carbon Dioxide 25 mmol/L (21-33) 07/12/17 07:15 Anion Gap 16 (10-20) 07/12/17 07:15 BUN 20 mg/dL (7-21) 07/12/17 07:15 Creatinine 0.6 mg/dL (0.5-1.4) 07/12/17 07:15 Est GFR ( Amer) > 60 07/12/17 07:15 Est GFR (Non-Af Amer) > 60 07/12/17 07:15 Random Glucose 109 mg/dL (70-110) 07/12/17 07:15 Calcium 10.1 mg/dL (8.4-10.5) 07/12/17 07:15 Iron 18 ug/dL (45-180) L 07/10/17 06:30 TIBC 244 ug/dL (265-497) L 07/10/17 06:30 % Saturation 8 % (20-55) L 07/10/17 06:30 Ferritin 167.0 ng/mL 07/10/17 06:30 Total Bilirubin 0.6 mg/dL (0.2-1.3) 07/12/17 07:15 AST 53 U/L (14-36) H D 07/12/17 07:15 ALT 47 U/L (7-56) 07/12/17 07:15 Alkaline Phosphatase 107 U/L (38-126) 07/12/17 07:15 Lactate Dehydrogenase 374 U/L (333-699) 07/08/17 05:10 Total Creatine Kinase < 20 U/L (35-230) L 07/08/17 05:10 Troponin I < 0.01 ng/mL 07/08/17 05:10 Total Protein 8.3 g/dL (5.8-8.3) 07/12/17 07:15 Albumin 3.7 g/dL (3.0-4.8) 07/12/17 07:15 Globulin 4.6 gm/dL 07/12/17 07:15 Albumin/Globulin Ratio 0.8 (1.1-1.8) L 07/12/17 07:15 Vitamin B12 315 pg/mL (239-931) 07/10/17 06:30 25-OH Vitamin D Total 20.2 NG/ML (30.0-100.0) L 07/08/17 Unknown Folate 7.1 ng/mL 07/10/17 06:30 Urine Color Yellow (YELLOW) 07/09/17 18:00 Urine Appearance Clear (CLEAR) 07/09/17 18:00 Urine pH 6.0 (4.7-8.0) 07/09/17 18:00 Ur Specific [place] 1.020 (1.005-1.035) 07/09/17 18:00 Urine Protein 30 mg/dL (<30 mg/dL) H 07/09/17 18:00 Urine Glucose (UA) Negative mg/dL (NEGATIVE) 07/09/17 18:00 Urine Ketones Negative mg/dL (NEGATIVE) 07/09/17 18:00 Urine Blood Large (NEGATIVE) H 07/09/17 18:00 Urine Nitrate Negative (NEGATIVE) 07/09/17 18:00 Urine Bilirubin Negative (NEGATIVE) 07/09/17 18:00 Urine Urobilinogen 1.0 E.U./dL (<1 E.U./dL) H 07/09/17 18:00 Ur Leukocyte Esterase Negative [place]/uL (NEGATIVE) 07/09/17 18:00 Urine RBC 25 - 30 /hpf (0-2) 07/09/17 18:00 Urine WBC 1 - 3 /hpf (0-6) 07/09/17 18:00 Ur Epithelial Cells 6 - 8 /hpf (0-5) 07/09/17 18:00 Urine Bacteria Many (NEG) 07/09/17 18:00 Hyaline Casts 2 - 5 /hpf 07/09/17 18:00 Fine Granular Casts 0 - 2 /hpf (0-2) 07/09/17 18:00 Attending/Attestation - Attestation I have personally seen and examined this patient.: Yes I have fully participated in the care of the patient.: Yes I have reviewed all pertinent clinical information, including history, physical exam and plan: Yes Notes (Text): 07/13/17 13:46 Patient was seen and examined with medical sales representative. Agreed with resident assessment and plan. 46 year old female with past medical history of hepatitis C, arthritis, depression and heroine abuse who was transferred from psychiatric unit for uncontrolled hypertension and withdrawal symptoms.Patient withdrawal are improved.Her Blood pressure is better controlled. Right hip pain - CT hip showed severe destruction at the right femoral head and right hip joint associated with superior subluxation of the right femoral head relative to the acetabulum and moderate to large right hip joint effusion. Orthopedics evaluation was appreciated who recommended pain control, PT evaluation and outpatient ortho follow up. Patient pain is better controlled, Physical therapy has recommended PJ.Patient will be discharged back to rehab facility. Management plan was discussed in detail with patient Education was provided.
[2017-07-12 17:26] VITALS: BP 134/83; PULSE 109; TEMP 98.6; O2SAT 95
== END 2017-07-12 17:39 | DRG 134 ==
LOC: ED 04:56 → ERH 05:14 → 2RNO 09:58 → 5RSO 07-11 23:30
PROVIDERS: ADMIT Hospitalist; ATTEND Internal Medicine
DX: I10 Essential (primary) hypertension (principal); F32.2 Major depressive disorder, single episode, severe without psychotic features; G62.9 Polyneuropathy, unspecified; S73.001A Unspecified subluxation of right hip, initial encounter; F11.90 Opioid use, unspecified, uncomplicated; B19.20 Unspecified viral hepatitis C without hepatic coma; E87.6 Hypokalemia; E78.00 Pure hypercholesterolemia, unspecified; F41.0 Panic disorder [episodic paroxysmal anxiety]; K21.9 Gastro-esophageal reflux disease without esophagitis; K59.00 Constipation, unspecified; M16.11 Unilateral primary osteoarthritis, right hip; M81.0 Age-related osteoporosis without current pathological fracture; Z59.0 Homelessness; Z87.891 Personal history of nicotine dependence; R40.2412 Glasgow coma scale score 13-15, at arrival to emergency department; R00.0 Tachycardia, unspecified; M62.40 Contracture of muscle, unspecified site; R11.10 Vomiting, unspecified; G47.00 Insomnia, unspecified; M25.451 Effusion, right hip; D64.9 Anemia, unspecified; F39 Unspecified mood [affective] disorder